=== PATIENT | female | born 1965 | race Caucasian/White ===

== ENCOUNTER → 2019-05-30 09:24 | Outpatient (CLI) | payer BC, SELFPAY ==
[2019-05-30 10:55] LABS: Erythrocyte Sedimentation Rate 7 MM/HR (0-20)
[2019-05-30 11:38] LABS: Thyroid Stimulating Hormone 5.13 uIU/mL (0.47-4.68)
[2019-06-01 20:17] LABS: ANA Screen, IFA Positive (Negative); ANA Titer 1:40 titer (<1:40)
== END ==
PROVIDERS: PCP Family Medicine; Visit Provider Hospitalist
DX: M25.552 Pain in left hip (principal)
CPT/HCPCS: 36415; 84443; 85651; 86038

== ENCOUNTER → 2019-08-10 08:04 | Outpatient (CLI) | payer BC, SELFPAY ==
--- NOTE | 2019-08-10 08:07 | DI.RAD.S_ITS ---
PROCEDURE: XR HAND LT MIN 3V INDICATIONS: hand pain no know injury TECHNIQUE: 3 views of the hand(s) acquired. COMPARISON: None. FINDINGS: Bones: No fractures or dislocations. Carpal bones are normally aligned. No suspicious bony lesions. Minimal diffuse interphalangeal degenerative changes. Chronic appearing ununited osteophyte at the DIP joint of the index finger. Soft tissues: No suspicious soft tissue calcifications. IMPRESSION: Mild degenerative changes as above. Dictated by: Manuel Young M.D. on 08/10/2019 at 11:02 Approved by: Manuel Young M.D. on 08/10/2019 at 11:04
--- NOTE | 2019-08-10 08:07 | DI.RAD.S_ITS ---
PROCEDURE: XR FOOT RT MIN 3V INDICATIONS: foot pain no know injury TECHNIQUE: 3 views of the foot were acquired. COMPARISON: None. FINDINGS: Bones: No fractures or dislocations. No suspicious bony lesions. Small plantar calcaneal spur. Mild first MTP joint degeneration. Hindfoot degenerative spurring in particular the dorsal aspect of the neck of the talus Soft tissues: No tibiotalar joint effusion. Achilles tendon appears normal. IMPRESSION: Degenerative changes as above. Small plantar calcaneal spur. If the patient's pain or other symptoms persist, consider further evaluation with MRI Dictated by: Manuel Young M.D. on 08/10/2019 at 11:55 Approved by: Manuel Young M.D. on 08/10/2019 at 11:59
--- NOTE | 2019-08-10 08:07 | DI.RAD.S_ITS ---
PROCEDURE: XR HAND RT MIN 3V INDICATIONS: hand pain no know injury TECHNIQUE: 3 views of the hand(s) acquired. COMPARISON: None. FINDINGS: Bones: No fractures or dislocations. Carpal bones are normally aligned. No suspicious bony lesions. Small marginal lucency seen at the PIP and DIP joints of the little finger as well as the DIP joint of the little finger, technically nonspecific but likely represent small erosions. First CMC joint spurring. Presumably chronic ununited osteophyte projects at the DIP joint of the index finger Soft tissues: No suspicious soft tissue calcifications. IMPRESSION: No fracture Pauci-articular marginal lucencies as detailed above, raising possibility of small erosions, technically indeterminate Dictated by: Manuel oYung M.D. on 08/10/2019 at 10:59 Approved by: Manuel Young M.D. on 08/10/2019 at 11:02
--- NOTE | 2019-08-10 08:07 | DI.RAD.S_ITS ---
PROCEDURE: XR FOOT LT MIN 3V INDICATIONS: foot pain no know injury TECHNIQUE: 3 views of the foot were acquired. COMPARISON: None. FINDINGS: Bones: No fractures or dislocations. No suspicious bony lesions. Plantar calcaneal spur. Mild first MTP joint degeneration. Soft tissues: No tibiotalar joint effusion. Achilles tendon appears normal. IMPRESSION: Plantar calcaneal spur. Mild first MTP joint degeneration. If the patient's pain or other symptoms persist, consider further evaluation with MRI Dictated by: Manuel Young M.D. on 08/10/2019 at 10:16 Approved by: Manuel Young M.D. on 08/10/2019 at 10:18
[2019-08-10 11:29] LABS: Thyroid Stimulating Hormone 2.33 uIU/mL (0.47-4.68)
== END ==
PROVIDERS: Hospitalist; PCP Family Medicine; Visit Provider Family Medicine
DX: M79.672 Pain in left foot (principal); M79.671 Pain in right foot; E03.9 Hypothyroidism, unspecified; M77.32 Calcaneal spur, left foot; M77.31 Calcaneal spur, right foot; M19.072 Primary osteoarthritis, left ankle and foot; M19.071 Primary osteoarthritis, right ankle and foot; M79.642 Pain in left hand; M79.641 Pain in right hand
CPT/HCPCS: 36415; 73130; 73630; 84443

== ENCOUNTER → 2020-06-11 17:13 | Outpatient (CLI) | payer BC, SELFPAY ==
--- NOTE | 2020-06-11 17:14 | DI.MG.S_ITS ---
BILATERAL DIGITAL SCREENING MAMMOGRAM 3D/2D WITH CAD: 06/11/2020 CLINICAL: Routine screening. Comparison is made to exams dated: 04/01/2017 mammogram, 05/24/2014 mammogram, 11/16/2012 mammogram, and 01/19/2012 mammogram - [facility]. The tissue of both breasts is extremely dense, which lowers the sensitivity of mammography. Current study was also evaluated with a Computer Aided Detection (CAD) system. There are benign calcifications in both breasts. No significant masses, calcifications, or other findings are seen in either breast. There has been no significant interval change. IMPRESSION: There is no mammographic evidence of malignancy. A 1 year screening mammogram is recommended. This exam was interpreted at Station ID: [id number]. NOTE: For mammograms, a report in lay terms will be sent to the patient. Approximately 15% of breast malignancies will not be visualized mammographically. In the management of a palpable breast mass, a negative mammogram must not discourage biopsy of a clinically suspicious lesion. Electronically Signed By: Yassine andujar/rasheeda:06/12/2020 08:08:24 letter sent: Normal Exam ACR BI-RADS Category 2: Benign Finding(s) 3342F
== END ==
PROVIDERS: PCP Family Medicine; Referring Provider Family Medicine; Visit Provider Family Medicine
DX: Z12.31 Encounter for screening mammogram for malignant neoplasm of breast (principal)
CPT/HCPCS: 77063; 77067

== ENCOUNTER → 2020-07-10 13:10 | Outpatient (CLI) | payer BC, SELFPAY ==
[2020-07-10 14:02] LABS: Add Manual Diff / Slide Review NO; Basophils Absolute Auto 100 /uL (0-100); Eosinophils Absolute Auto 100 /uL (0-450); Eosinophils Percent Auto 1.2 % (2-4); Hemoglobin 12.9 g/dL (12.0-16.0); Lymphocytes Absolute Auto 900 /uL (1100-4500); Lymphocytes Percent Auto 16.2 % (25-40); Mean Corpuscular Hemoglobin 33.9 PG (26-34); Mean Corpuscular Volume 99.5 fL (80-100); Monocytes Absolute Auto 500 /uL (0-900); Monocytes Percent Auto 8.9 % (3-14); Neutrophils Absolute Auto 4000 /uL (1500-7000); Neutrophils Percent Auto 72.7 % (50-75); Platelet Count 197 X10^3/uL (150-400); Red Blood Cell Count 3.82 X10^6/uL (4.0-5.2); Red Cell Distribution Width 14.4 % (11.6-14.8); White Blood Cell Count 5.6 X10^3/uL (4.5-11.0)
[2020-07-10 14:58] LABS: Thyroid Stimulating Hormone 1.62 uIU/mL (0.47-4.68)
[2020-07-10 15:02] LABS: Ferritin 22 ng/mL (11-264)
[2020-07-11 08:12] LABS: Thyroid Peroxidase Antibodies 91 IU/mL (0-34)
== END ==
PROVIDERS: PCP Family Medicine; Referring Provider Naturopath; Visit Provider Naturopath
DX: Z00.00 Encounter for general adult medical examination without abnormal findings (principal); L40.50 Arthropathic psoriasis, unspecified; E03.9 Hypothyroidism, unspecified; L60.8 Other nail disorders; H11.9 Unspecified disorder of conjunctiva
CPT/HCPCS: 36415; 82728; 84443; 85025; 86376

== ENCOUNTER → 2021-04-23 12:05 | Outpatient (CLI) | payer BC, SELFPAY ==
--- NOTE | 2021-04-23 12:09 | DIET.PN ---
Dietary Progress Note Assessment: 55y F attending nutrition visit for help with diet to manage rhumatoid arthritis. Pt taking two meds for RA (tried methotrexate, then switched to Destiny) is avoiding dairy, takes levothyroxine RA started about a year ago, got MADISON test and lesions on bones in hands giving her Dx, now px in hips, feet, hands Usual Day: 24oz coffee c 1 tbs coconut oil and 2 tsp butter B: oatmeal c maria fernanda seeds, dates or corn tortilla c eggs and greens or smoothie blueberry, strawberry, egg, almond butter, maria fernanda seeds L: leftovers rice and beans, salad, sandwich c turkey lettuce tomato goat cheese Sn 3pm: sometimes cookie, walnuts, or fruit Dinner: taco salad c chips, chicken, beans, salsa, guac, spaghetti or protein (elk, moose, chicken, fish c rice or potatoes and salad) 32oz water daily wine 1-2x/w socially RA does have some discomfort with workouts but still does it: weights 3x/w, run 4-5 mi twice per week, walk the other days taking 500mg Vit C, hair skin and nails, fish oil, D3, magnesium body oil Labs:MADISON positive Nutrition Diagnosis: nutrition related knowledge deficit r/t recent dx of rhumatoid arthritis aeb pt dx c RA one year ago, positive MADISON, pt researching variety of diets to manage RA and unsure which is best for her. Interventions: 1. Introduced pt to RA diet pyramid. Including daily PA, mineral water (1.5-2L), green leafy veg, cruciferous veg, red fruit and agrumes, gluten free grains/rice/corn, olive oil/avocado oil, maria fernanda and flax seeds, spices and herbs, okay for 1 glass wine, white meat/omega 3fish/legumes/wild game, and cheese/eggs/red meat only once or twice per week. 2. Discussed pts research on AIP diet. Pt feels this may be too restrictive for her and wonders if it is necessary. While this RD can help with an AIP type protocol, expressed to pt preference for starting with RA diet and we can revisit if her sx are not adequately controlled between this intervention and her medications. Diet Order: Anti-Inflammatory Diet EER: daily intake cruciferous veg, red fruit, [place] 3, Vit D, gluten free, and follow RA food guide pyramid. Monitoring/Evaluations: f/u in 6w to assess progress and problem solve barriers.
== END ==
PROVIDERS: PCP Family Medicine; Referring Provider Family Medicine; Visit Provider Family Medicine
DX: M06.9 Rheumatoid arthritis, unspecified (principal); Z71.3 Dietary counseling and surveillance
CPT/HCPCS: 97802

== ENCOUNTER → 2021-09-10 09:38 | Outpatient (CLI) | payer BC, SELFPAY ==
[2021-09-10 10:56] LABS: COVID19 -Nasal RAPID Negative (Negative)
== END ==
PROVIDERS: PCP Family Medicine; Referring Provider Nurse Practitioner; Visit Provider Nurse Practitioner
DX: Z20.822 Contact with and (suspected) exposure to COVID-19 (principal); J02.9 Acute pharyngitis, unspecified; R09.89 Other specified symptoms and signs involving the circulatory and respiratory systems; R51.9 Headache, unspecified
CPT/HCPCS: 87635

== ENCOUNTER → 2022-05-12 15:32 | Outpatient (CLI) | payer BC, SELFPAY ==
[2022-05-12 16:36] LABS: Add Manual Diff / Slide Review NO; Basophils Absolute Auto 100 /uL (0-100); Basophils Percent Auto 1.1 % (0-2); Eosinophils Absolute Auto 100 /uL (0-450); Eosinophils Percent Auto 1.7 % (2-4); Hematocrit 39.5 % (36-46); Hemoglobin 13.7 g/dL (12.0-16.0); Lymphocytes Absolute Auto 1400 /uL (1100-4500); Lymphocytes Percent Auto 24.2 % (25-40); Mean Corpuscular HGB Conc 34.6 % (30-36); Mean Corpuscular Hemoglobin 32.6 PG (26-34); Monocytes Absolute Auto 500 /uL (0-900); Monocytes Percent Auto 8.8 % (3-14); Neutrophils Absolute Auto 3700 /uL (1500-7000); Neutrophils Percent Auto 64.2 % (50-75); Platelet Count 169 X10^3/uL (150-400); Red Cell Distribution Width 13.3 % (11.6-14.8); White Blood Cell Count 5.8 X10^3/uL (4.5-11.0)
[2022-05-12 17:56] LABS: Alanine Aminotransferase 18 IU/L (<35); Albumin 4.6 g/dL (3.5-5.0); Albumin Globulin Ratio 1.5 (1.0-2.8); Alkaline Phosphatase 81 U/L (38-126); Aspartate Aminotransferase 35 IU/L (14-36); BUN Creatinine Ratio 13.8 (6-22); Bilirubin Total 0.5 mg/dL (0.2-1.3); Blood Urea Nitrogen 12 mg/dL (7-17); Calcium 9.1 mg/dL (8.4-10.2); Carbon Dioxide 30 mmol/L (22-32); Chloride 103 mmol/L (98-107); Estimated Glomerular Filt Rate > 60 mL/min (>60); Glucose 96 mg/dL (70-100); HEMOLYSIS < 15 (0-50); Potassium 3.8 mmol/L (3.4-5.1); Sodium 138 mmol/L (137-145); Total Protein 7.6 g/dL (6.3-8.2)
== END ==
PROVIDERS: PCP Family Medicine; Referring Provider Internal Medicine Rheumatology; Visit Provider Internal Medicine Rheumatology
DX: M05.29 Rheumatoid vasculitis with rheumatoid arthritis of multiple sites (principal); Z79.899 Other long term (current) drug therapy; E03.8 Other specified hypothyroidism; E06.3 Autoimmune thyroiditis; M06.9 Rheumatoid arthritis, unspecified
CPT/HCPCS: 36415; 80053; 85025

== ENCOUNTER → 2022-06-15 07:32 | Outpatient (CLI) | payer BC, SELFPAY ==
[2022-06-15 09:44] LABS: Cholesterol 203 mg/dL (140-199); HDL Cholesterol 106 mg/dL (40-60); LDL Cholesterol Calculated 85 mg/dL (<100); Triglycerides 58 mg/dL (35-150)
[2022-06-15 10:12] LABS: TSH w/ Reflex to FT4 3.05 uIU/mL (0.47-4.68)
== END ==
PROVIDERS: PCP Family Medicine; Referring Provider Family Medicine; Visit Provider Family Medicine
DX: E03.8 Other specified hypothyroidism (principal); E06.3 Autoimmune thyroiditis; M06.9 Rheumatoid arthritis, unspecified
CPT/HCPCS: 36415; 80061; 84443

== ENCOUNTER → 2022-12-30 07:04 | Outpatient (CLI) | payer BC, SELFPAY ==
[2022-12-30 07:40] LABS: Add Manual Diff / Slide Review NO; Basophils Absolute Auto 0 /uL (0-100); Basophils Percent Auto 1.1 % (0-2); Eosinophils Absolute Auto 100 /uL (0-450); Eosinophils Percent Auto 1.2 % (2-4); Hematocrit 39.2 % (36-46); Hemoglobin 13.4 g/dL (12.0-16.0); Lymphocytes Absolute Auto 1200 /uL (1100-4500); Mean Corpuscular HGB Conc 34.2 % (30-36); Mean Corpuscular Hemoglobin 32.3 PG (26-34); Mean Corpuscular Volume 94.5 fL (80-100); Monocytes Absolute Auto 300 /uL (0-900); Monocytes Percent Auto 6.2 % (3-14); Neutrophils Absolute Auto 2800 /uL (1500-7000); Neutrophils Percent Auto 63.5 % (50-75); Platelet Count 180 X10^3/uL (150-400); Red Blood Cell Count 4.15 X10^6/uL (4.0-5.2); Red Cell Distribution Width 12.6 % (11.6-14.8); White Blood Cell Count 4.4 X10^3/uL (4.5-11.0)
[2022-12-30 07:56] LABS: Alanine Aminotransferase 29 IU/L (<35); Albumin 4.5 g/dL (3.5-5.0); Albumin Globulin Ratio 1.5 (1.0-2.8); Alkaline Phosphatase 78 U/L (38-126); Aspartate Aminotransferase 39 IU/L (14-36); BUN Creatinine Ratio 15.8 (6-22); Bilirubin Total 0.8 mg/dL (0.2-1.3); Blood Urea Nitrogen 15 mg/dL (7-17); C-Reactive Protein Quant < 0.5 mg/dL (<1.0); Calcium 9.2 mg/dL (8.4-10.2); Carbon Dioxide 32 mmol/L (22-32); Chloride 102 mmol/L (98-107); Estimated Glomerular Filt Rate > 60 mL/min (>60); Globulin 3.1 g/dL (1.7-4.1); Glucose 79 mg/dL (70-100); HEMOLYSIS < 15 (0-50); Sodium 140 mmol/L (137-145); Total Protein 7.6 g/dL (6.3-8.2)
[2022-12-30 07:58] LABS: Erythrocyte Sedimentation Rate 8 MM/HR (0-20)
[2022-12-30 16:31] LABS: Hep C Virus Ab w/Reflex Quant NEGATIVE s/c (NEGATIVE)
[2022-12-31 05:14] LABS: Hepatitis B Core AB w/Reflex Negative (Negative)
[2023-01-03 16:20] LABS: QuantiFERON Mitogen Value >10.00 IU/mL (.); QuantiFERON Nil Value 0.06 IU/mL (.); QuantiFERON TB Gold Plus Negative (Negative); QuantiFERON TB1 Ag Value 0.07 IU/mL (.); QuantiFERON TB2 Ag Value 0.08 IU/mL (.)
== END ==
PROVIDERS: PCP Family Medicine; Referring Provider Internal Medicine Rheumatology; Visit Provider Internal Medicine Rheumatology
DX: M05.79 Rheumatoid arthritis with rheumatoid factor of multiple sites without organ or systems involvement (principal); Z79.899 Other long term (current) drug therapy
CPT/HCPCS: 36415; 80053; 85025; 85651; 86140; 86480; 86704; 86803

== ENCOUNTER → 2023-04-21 10:23 | Outpatient (CLI) | payer BC, SELFPAY ==
[2023-04-21 11:34] LABS: Add Manual Diff / Slide Review NO; Basophils Absolute Auto 100 /uL (0-100); Basophils Percent Auto 1.1 % (0-2); Eosinophils Absolute Auto 0 /uL (0-450); Eosinophils Percent Auto 0.5 % (2-4); Hematocrit 40.1 % (36-46); Hemoglobin 13.6 g/dL (12.0-16.0); Lymphocytes Absolute Auto 1400 /uL (1100-4500); Mean Corpuscular HGB Conc 33.9 % (30-36); Mean Corpuscular Hemoglobin 32.6 PG (26-34); Monocytes Absolute Auto 400 /uL (0-900); Monocytes Percent Auto 7.1 % (3-14); Neutrophils Absolute Auto 3400 /uL (1500-7000); Neutrophils Percent Auto 65.3 % (50-75); Platelet Count 184 X10^3/uL (150-400); Red Blood Cell Count 4.17 X10^6/uL (4.0-5.2); Red Cell Distribution Width 13.1 % (11.6-14.8); White Blood Cell Count 5.3 X10^3/uL (4.5-11.0)
[2023-04-21 11:47] LABS: Alanine Aminotransferase 29 IU/L (<35); Albumin 4.5 g/dL (3.5-5.0); Albumin Globulin Ratio 1.6 (1.0-2.8); Alkaline Phosphatase 73 U/L (38-126); Aspartate Aminotransferase 35 IU/L (14-36); BUN Creatinine Ratio 14.1 (6-22); Blood Urea Nitrogen 13 mg/dL (7-17); Calcium 9.3 mg/dL (8.4-10.2); Carbon Dioxide 32 mmol/L (22-32); Chloride 100 mmol/L (98-107); Cholesterol 207 mg/dL (140-199); Estimated Glomerular Filt Rate > 60 mL/min (>60); Globulin 2.9 g/dL (1.7-4.1); Glucose 95 mg/dL (70-100); HDL Cholesterol 95 mg/dL (40-60); HEMOLYSIS < 15 (0-50); LDL Cholesterol Calculated 97 mg/dL (<100); Sodium 140 mmol/L (137-145); Total Protein 7.4 g/dL (6.3-8.2); Triglycerides 73 mg/dL (35-150)
[2023-04-21 12:00] LABS: TSH w/ Reflex to FT4 1.01 uIU/mL (0.47-4.68)
== END ==
PROVIDERS: PCP Family Medicine; Referring Provider Family Medicine; Visit Provider Family Medicine
DX: E03.9 Hypothyroidism, unspecified (principal); M06.9 Rheumatoid arthritis, unspecified
CPT/HCPCS: 36415; 80053; 80061; 84443; 85025

== ENCOUNTER → 2023-05-06 14:10 | Outpatient (CLI) | payer BC, SELFPAY ==
[2023-05-09 10:38] LABS: Fecal Immunochemical Test Negative (Negative)
== END ==
PROVIDERS: PCP Family Medicine; Referring Provider Family Medicine; Visit Provider Family Medicine
DX: Z12.11 Encounter for screening for malignant neoplasm of colon (principal)
CPT/HCPCS: 82274

== ENCOUNTER → 2024-01-05 16:11 | Outpatient (CLI) | payer BC, SELFPAY ==
[2024-01-05 19:31] LABS: Influenza A - CEPHEID Flu A NEGATIVE (NEGATIVE); Influenza B - CEPHEID Flu B NEGATIVE (NEGATIVE); Respiratory Syncytial Virus Negative (Negative)
[2024-01-05 19:40] LABS: COVID-19 CEPHEID 4-PLEX PCR POSITIVE (Negative)
== END ==
PROVIDERS: PCP Family Medicine; Visit Provider Physician Assistant
DX: R05.1 Acute cough (principal)
CPT/HCPCS: 0241U

== ENCOUNTER → 2024-09-25 07:24 | Outpatient (CLI) | payer BC, SELFPAY ==
--- NOTE | 2024-09-25 07:26 | DI.RAD.S_ITS ---
PROCEDURE: XR HIP W PEL IF DONE LT 2V INDICATIONS: left hip pain TECHNIQUE: AP pelvis with lateral view(s) of the left hip(s). COMPARISON: None. FINDINGS: No acute fracture or dislocation. Minimal bilateral hip osteoarthritis, greater on the left side. Mild right sacroiliac joint osteoarthritis. The left sacroiliac joint is preserved. Mild pubic symphysis osteoarthritis. Pelvic phleboliths. The visualized sacral arcs are preserved. IMPRESSION: Minimal bilateral hip osteoarthritis, greater on the left side. Dictated by: Clayton Joseph M.D. on 09/27/2024 at 10:34 Approved by: Clayton Joseph M.D. on 09/27/2024 at 10:35
[2024-09-25 08:11] LABS: Add Manual Diff / Slide Review NO; Basophils Absolute Auto 0 /uL (0-100); Basophils Percent Auto 1.2 % (0-2); Eosinophils Absolute Auto 0 /uL (0-450); Hemoglobin 12.6 g/dL (12.0-16.0); Lymphocytes Absolute Auto 1000 /uL (1100-4500); Lymphocytes Percent Auto 22.6 % (25-40); Mean Corpuscular Hemoglobin 32.8 PG (26-34); Mean Corpuscular Volume 96.4 fL (80-100); Monocytes Absolute Auto 300 /uL (0-900); Neutrophils Absolute Auto 2900 /uL (1500-7000); Neutrophils Percent Auto 67.2 % (50-75); Platelet Count 175 X10^3/uL (150-400); Red Blood Cell Count 3.84 X10^6/uL (4.0-5.2); Red Cell Distribution Width 12.9 % (11.6-14.8); White Blood Cell Count 4.3 X10^3/uL (4.5-11.0)
[2024-09-25 09:03] LABS: TSH w/ Reflex to FT4 4.64 uIU/mL (0.47-4.68)
[2024-09-25 09:07] LABS: Alanine Aminotransferase 20 IU/L (<35); Albumin 3.8 g/dL (3.5-5.0); Albumin Globulin Ratio 1.6 (1.0-2.8); Alkaline Phosphatase 72 U/L (38-126); Aspartate Aminotransferase 35 IU/L (14-36); Bilirubin Total 0.7 mg/dL (0.2-1.3); Blood Urea Nitrogen 15 mg/dL (7-17); Calcium 9.5 mg/dL (8.4-10.2); Carbon Dioxide 31 mmol/L (22-32); Chloride 103 mmol/L (98-107); Cholesterol 186 mg/dL (140-199); Estimated Glomerular Filt Rate > 60 mL/min (>60); Globulin 2.4 g/dL (1.7-4.1); Glucose 95 mg/dL (70-100); HDL Cholesterol 95 mg/dL (40-60); HEMOLYSIS < 15 (0-50); LDL Cholesterol Calculated 78 mg/dL (<100); Potassium 4.2 mmol/L (3.4-5.1); Sodium 136 mmol/L (137-145); Total Protein 6.2 g/dL (6.3-8.2); Triglycerides 66 mg/dL (35-150)
== END ==
PROVIDERS: PCP Family Medicine; Referring Provider Family Medicine; Visit Provider Family Medicine
DX: M25.552 Pain in left hip (principal); M06.9 Rheumatoid arthritis, unspecified; E03.8 Other specified hypothyroidism; Z13.220 Encounter for screening for lipoid disorders; E06.3 Autoimmune thyroiditis; M16.0 Bilateral primary osteoarthritis of hip
CPT/HCPCS: 36415; 73502; 80053; 80061; 84443; 85025

== ENCOUNTER → 2024-11-22 10:46 | Outpatient (CLI) | payer BC, SELFPAY ==
[2024-11-22 11:59] LABS: Add Manual Diff / Slide Review NO; Basophils Absolute Auto 100 /uL (0-100); Eosinophils Absolute Auto 0 /uL (0-450); Eosinophils Percent Auto 0.7 % (2-4); Hematocrit 42.4 % (36-46); Hemoglobin 14.3 g/dL (12.0-16.0); Lymphocytes Absolute Auto 1100 /uL (1100-4500); Lymphocytes Percent Auto 20.4 % (25-40); Mean Corpuscular HGB Conc 33.8 % (30-36); Mean Corpuscular Hemoglobin 32.6 PG (26-34); Mean Corpuscular Volume 96.6 fL (80-100); Monocytes Absolute Auto 400 /uL (0-900); Monocytes Percent Auto 7.5 % (3-14); Neutrophils Absolute Auto 3800 /uL (1500-7000); Neutrophils Percent Auto 70.4 % (50-75); Platelet Count 221 X10^3/uL (150-400); Red Blood Cell Count 4.39 X10^6/uL (4.0-5.2); Red Cell Distribution Width 12.7 % (11.6-14.8); White Blood Cell Count 5.4 X10^3/uL (4.5-11.0)
[2024-11-22 13:20] LABS: TSH w/ Reflex to FT4 1.47 uIU/mL (0.47-4.68)
== END ==
PROVIDERS: Family Provider Family Medicine; PCP Family Medicine; Referring Provider Family Medicine; Visit Provider Family Medicine
DX: E03.8 Other specified hypothyroidism (principal); E06.3 Autoimmune thyroiditis; M06.9 Rheumatoid arthritis, unspecified
CPT/HCPCS: 36415; 84443; 85025

== ENCOUNTER 2025-04-17 10:45 | Outpatient (RCR) | payer BC, SELFPAY ==
--- NOTE | 2024-10-31 15:55 | PT.OIE ---
Current Diagnoses Pain in left hip (10/31/24) Stiffness of left hip, not elsewhere classified (10/31/24) Stiffness of other specified joint, not elsewhere classified (10/31/24) Other lack of coordination (10/31/24) Weakness (10/31/24) Past Medical History (Last Reviewed 03/23/21 @ 14:48 by Reji Hall MD) Rheumatoid arthritis Past Surgical History (Last Reviewed 03/23/21 @ 14:48 by Reji Hall MD) Status post left foot surgery Visit Care Team Role Provider Type Reji Hall MD Attending Provider Physician Family Provider Primary Care Provider Referring Provider Specialty: Family Practice Address: [address] [place] [address] Email: [email or web address] Physical Therapy Initial Evaluation PT-OP-A Visit Information Start: 10/30/24 16:07 Freq: Status: Active Protocol: Document 10/31/24 11:35 NM (Rec: 10/31/24 12:27 NM [id number]) Out-Patient Physical Therapy Visit Information Visit Information Visit Type Initial Evaluation Visit Start Time 11:36 Visit Stop Time 12:15 Visit Number 1 Evaluation Information Evaluation Date 10/31/24 Precautions Precautions RA PT-OP-B Current Condition Start: 10/30/24 16:07 Freq: Status: Active Protocol: Document 10/31/24 11:35 NM (Rec: 10/31/24 12:27 NM [id number]) Current Condition History of Current Condition Onset Date chronic Current Complaints pain, weakness History of Current Condition Pt reports on-off pain for years. She reports pain in L side, inside of the bone. She reports when running, if it hard to lift leg to run, has pain in glute. She has had pain at night, wakes her up. feels deep. She has a hx of sciatic pain on L side. She sees a chiro, 1x/month helps with pain in back (mid-low back). 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 Used to have pain with sleeping on side, but now any position. Has RA, has flare ups, dx 7 years ago (on medication to manage); saw rheum 1 month ago, has follow up in a few weeks. When she starts running, worse if already irritated; feels weak. No hx of injuries to hip. hx of several ankle injuries B, L >R- limited motion L Prior Treatments and Tests August 2024 L hip xray- Impression: minimal bilateral hip osteoarthritis, greater on the left side. Current Functional Impairments (Reported) Functional Limitations- Recreation/ wt lifting 3x/wk Hobbies running 3x/wk (5-6 mi, 4 mi) > 2x/wk PT-OP-C Subjective Start: 10/31/24 16:25 Freq: Status: Active Protocol: Document 10/31/24 11:35 NM (Rec: 10/31/24 16:26 NM [id number]) OP-PT Subjective Patient Comments Patient Comments Pt consents to participate in PT evaluation Patient Questionnaires Lower Extremity Functional Scale LEFS Score 75/80 Oswestry Low Back Index Oswestry Score 12/100 OP-PT Pain Assessment Location L hip Pain Location Details glute (deep)>lateral hip, ant hip in groin (deep) Intensity 3 Scale Used Numeric (0 - 10) Description Aching,Dull Description- Other worst 7/10 Pain Aggravating Factors Position,Changing Position, Activity,Exercise,Sitting, Walking,Bending,Lifting Other Pain Aggravating Factors sleeping, hitting volleyball, running Pain Alleviating Factors Position Other Pain Alleviating Factors offloading hip PT-OP-D Balance Start: 10/30/24 16:07 Freq: Status: Active Protocol: Document 10/31/24 11:35 NM (Rec: 10/31/24 12:27 NM [id number]) Balance Tests Single Limb Standing Single Limb- Right 5 Single Limb- Left 5 - demos trendelenburg PT-OP-E Functional Tests Start: 10/30/24 16:07 Freq: Status: Active Protocol: Document 10/31/24 11:35 NM (Rec: 10/31/24 12:27 NM [id number]) Functional Tests Squat Test Score 10 Comments demos hip shift and rot; B knee crepitus Single Leg Squat Test Score L weakness and valgus Comment R WFL PT-OP-F Manual Assessment Start: 10/30/24 16:07 Freq: Status: Active Protocol: Document 10/31/24 11:35 NM (Rec: 10/31/24 12:27 NM [id number]) Manual Assessments Soft Tissue Assessment Soft Tissue Mobility Assessment Tightness of hip flexors, glutes Elongated hamstrings Joint Mobility Assessment Joint Mobility Assessment Decreased mobility with rotation R hip, L hip has more mobility Hypomobility of lumbar spine, thoracic spine and L SIJ, tenderness at L SIJ PT-OP-G Mobility & Gait Start: 10/30/24 16:07 Freq: Status: Active Protocol: Document 10/31/24 11:35 NM (Rec: 10/31/24 12:27 NM [id number]) OP Gait Assessment Gait Gait Assistance Required: Independent Distance (Feet) 150 Assistive Devices Assistive Device None Gait Deviations General Gait Pattern Within Normal Limits PT-OP-J Posture/Palpation/Skin Start: 10/30/24 16:07 Freq: Status: Active Protocol: Document 10/31/24 11:35 NM (Rec: 10/31/24 12:27 NM [id number]) Posture Evaluation Position Standing Head/C-Spine Posture Forward Head Shoulder Posture (L) Rounded,(R) Rounded Scapula Posture (L) Neutral,(R) Neutral Pelvis Posture Anteriorly Tilted,(R) Rotated Anterior Knee Posture (L) Genu Valgus,(R) Genu Valgus Ankle/Foot Posture (L) Pronated,(R) Pronated Comments Posture Comments Demos hypermobility in B elbows and knees Palpation Assessment Location L hip Palpation Details No tenderness at groin Tightness at hip flexors Tenderness at glute, piriformis. Trigger points noted at glutes/piriformis harrison behind greater trochanter PT-OP-K Range of Motion Start: 10/30/24 16:07 Freq: Status: Active Protocol: Document 10/31/24 11:35 NM (Rec: 10/31/24 12:27 NM [id number]) Lumbar Spine Range of Motion Lumbar Spine Active Percentage Flexion 100 Extension 100 Rotation Left 50 Rotation Right 50 Lateral Flexion Left 100 Lateral Flexion Right 100 Comments R LF pulls on L lateral; stiffness w/ rotation; R drop w/ L stance Hip Goniometric Range of Motion Hip Right Flexion w/Knee Flexed 125 Extension 10 Abduction 25 Internal Rotation 35 External Rotation 35 Left Flexion w/Knee Flexed 130 Extension 10 Abduction 20 Internal Rotation 45 External Rotation 28 Comments IR tightness, same pain PT-OP-L Special Tests Start: 10/30/24 16:07 Freq: Status: Active Protocol: Document 10/31/24 11:35 NM (Rec: 10/31/24 12:27 NM [id number]) Special Tests Lumbar Spine Special Tests Gonzales/quadrant Test Results + Comments L local, Radic to bottom Hip Special Tests Scour Test Test Results - Stinchfield Resisted Hip Flexion Test Results - Labral tests Test Results - FADIR Test Results - Comments reproduced with cross body adduction and SLR passively SAMANHTA Test Results + Comments in glute, less on L side PT-OP-M Strength Start: 10/30/24 16:07 Freq: Status: Active Protocol: Document 10/31/24 11:35 NM (Rec: 10/31/24 12:27 NM [id number]) Trunk Strength Trunk Manual Muscle Testing Flexion 4 Good Extension 4 Good Rotation Left 4 Good Rotation Right 4 Good Lateral Flexion Left 4 Good Lateral Flexion Right 4 Good Hip Strength Hip Manual Muscle Testing Right Flexion (L2) 4+ Good+ Extension (S1) 4 Good Abduction 4+ Good+ Adduction 4+ Good+ External Rotation 4+ Good+ Internal Rotation 4+ Good+ Left Flexion (L2) 4 Good Extension (S1) 4 Good Abduction 4- Good- Adduction 4 Good External Rotation 4 Good Internal Rotation 4- Good- Comments pain with abduction resisted Knee Strength Knee Manual Muscle Testing Right Flexion (S2) 4+ Good+ Extension (L3) 4+ Good+ Left Flexion (S2) 4 Good Extension (L3) 4 Good Comments pain with HS, reproduced in glute Ankle/Foot Strength Ankle and Foot Manual Muscle Testing Right Dorsiflexion (L4) 4 Good Plantarflexion (S1) 4 Good Inversion 4 Good Eversion (S1) 4 Good Left Dorsiflexion (L4) 4 Good Plantarflexion (S1) 4 Good Inversion 4 Good Eversion (S1) 4 Good PT-OP-T Assessment and Plan Start: 10/30/24 16:07 Freq: Status: Active Protocol: Document 10/31/24 11:35 NM (Rec: 10/31/24 12:27 NM [id number]) Physical Therapy Assessment Rehab Potential Rehabilitation Potential Good Evaluation Complexity Number of Personal Factors/Comorbidities 3 or More Number of Body Systems Impaired 4 or More Clinical Presentation at Evaluation Stable Impairments Impairments Activity Tolerance,Balance, Functional Activities, Functional Mobility,Gait, Integument,Pain,Posture,ROM, Sensation,Soft Tissue Mobility ,Strength,Transfers Other Concerns Age Related Concerns PMH: RA, back pain, thyroid disorder, varicose veins. 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 presenting with chronic L hip pain that is worsening. Pt has impairments with sleep, ROM, strength, soft tissue mobility , ADLs/IADLs, work-related tasks, and pain management. Pt is active and participates in strength training and running several times/wk. Pt does have mild limitations in L hip mobility. However, she demonstrates more restrictions in lumbopelvic and SIJ mobility. Pt also has mild strength deficits between B hips/ankles, L>R. Glute tendon irritation also likely from trendelenburg with SLS and pain with resisted L abduction . Symptoms are most consistent with piriformis syndrome with glute pathology and SIJ dysfunction, along with above mobility impairments. PT educated pt on plan of care and exam findings. Rehab progress may be limited by pt work schedule. Pt would benefit from skilled PT for progressive strengthening and flexibility in order to improve symptom management and improve functional mobility. Physical Therapy Plan Frequency and Duration Frequency of Treatment 1-2x/wk Duration of treatment (weeks) 12 Plan of Care Start Date 10/31/24 Plan of Care End Date 01/25/25 Therapeutic Interventions Therapeutic Interventions Balance Training,Gait Training ,Home Exercise Program,Joint Mobilizations,Manual Therapy, Neuromuscular Re-education, Orthotic/Prosthetic Management ,Patient/Caregiver Education, Self-Care/Home Management, Sensory Integration,Soft Tissue Mobilization,Taping, Therapeutic Activities, Therapeutic Exercises Modalities Cold Pack/Ice Massage,Electric Stimulation,Hot Packs, Ultrasound Next Visit Focus/Plan Next Note Type Treatment Note Next Visit Plan hip mobilizations STM to glute, glute/hip strength harrison rotation quadruped mobility, hip ER/IR mobility
--- NOTE | 2024-11-02 10:37 | PT.OTN ---
Current Diagnoses Pain in left hip (11/02/24) Stiffness of left hip, not elsewhere classified (11/02/24) Stiffness of other specified joint, not elsewhere classified (11/02/24) Other lack of coordination (11/02/24) Weakness (11/02/24) Physical Therapy Treatment Note PT-OP-A Visit Information Start: 10/30/24 16:07 Freq: Status: Active Protocol: Document 11/02/24 09:47 NM (Rec: 11/02/24 10:36 NM [id number]) Out-Patient Physical Therapy Visit Information Visit Information Visit Type Treatment Note Visit Start Time 09:49 Visit Stop Time 10:30 Visit Number 2 Evaluation Information Evaluation Date 10/31/24 Precautions Precautions RA PT-OP-B Current Condition Start: 10/30/24 16:07 Freq: Status: Active Protocol: Document 10/31/24 11:35 NM (Rec: 10/31/24 12:27 NM [id number]) Current Condition History of Current Condition Onset Date chronic Current Complaints pain, weakness History of Current Condition Pt reports on-off pain for years. She reports pain in L side, inside of the bone. She reports when running, if it hard to lift leg to run, has pain in glute. She has had pain at night, wakes her up. feels deep. She has a hx of sciatic pain on L side. She sees a chiro, 1x/month helps with pain in back (mid-low back). 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 Used to have pain with sleeping on side, but now any position. Has RA, has flare ups, dx 7 years ago (on medication to manage); saw rheum 1 month ago, has follow up in a few weeks. When she starts running, worse if already irritated; feels weak. No hx of injuries to hip. hx of several ankle injuries B, L >R- limited motion L Prior Treatments and Tests August 2024 L hip xray- Impression: minimal bilateral hip osteoarthritis, greater on the left side. Current Functional Impairments (Reported) Functional Limitations- Recreation/ wt lifting 3x/wk Hobbies running 3x/wk (5-6 mi, 4 mi) > 2x/wk PT-OP-C Subjective Start: 10/31/24 16:25 Freq: Status: Active Protocol: Document 11/02/24 09:47 NM (Rec: 11/02/24 10:36 NM [id number]) OP-PT Subjective Patient Comments Patient Comments Pt reports no changes after evaluation. Pt reports L hip 2 /10 pain in glute area PT-OP-D Balance Start: 10/30/24 16:07 Freq: Status: Active Protocol: Document 10/31/24 11:35 NM (Rec: 10/31/24 12:27 NM [id number]) Balance Tests Single Limb Standing Single Limb- Right 5 Single Limb- Left 5 - demos trendelenburg PT-OP-E Functional Tests Start: 10/30/24 16:07 Freq: Status: Active Protocol: Document 10/31/24 11:35 NM (Rec: 10/31/24 12:27 NM [id number]) Functional Tests Squat Test Score 10 Comments demos hip shift and rot; B knee crepitus Single Leg Squat Test Score L weakness and valgus Comment R WFL PT-OP-F Manual Assessment Start: 10/30/24 16:07 Freq: Status: Active Protocol: Document 10/31/24 11:35 NM (Rec: 10/31/24 12:27 NM [id number]) Manual Assessments Soft Tissue Assessment Soft Tissue Mobility Assessment Tightness of hip flexors, glutes Elongated hamstrings Joint Mobility Assessment Joint Mobility Assessment Decreased mobility with rotation R hip, L hip has more mobility Hypomobility of lumbar spine, thoracic spine and L SIJ, tenderness at L SIJ PT-OP-G Mobility & Gait Start: 10/30/24 16:07 Freq: Status: Active Protocol: Document 10/31/24 11:35 NM (Rec: 10/31/24 12:27 NM [id number]) OP Gait Assessment Gait Gait Assistance Required: Independent Distance (Feet) 150 Assistive Devices Assistive Device None Gait Deviations General Gait Pattern Within Normal Limits PT-OP-J Posture/Palpation/Skin Start: 10/30/24 16:07 Freq: Status: Active Protocol: Document 10/31/24 11:35 NM (Rec: 10/31/24 12:27 NM [id number]) Posture Evaluation Position Standing Head/C-Spine Posture Forward Head Shoulder Posture (L) Rounded,(R) Rounded Scapula Posture (L) Neutral,(R) Neutral Pelvis Posture Anteriorly Tilted,(R) Rotated Anterior Knee Posture (L) Genu Valgus,(R) Genu Valgus Ankle/Foot Posture (L) Pronated,(R) Pronated Comments Posture Comments Demos hypermobility in B elbows and knees Palpation Assessment Location L hip Palpation Details No tenderness at groin Tightness at hip flexors Tenderness at glute, piriformis. Trigger points noted at glutes/piriformis harrison behind greater trochanter PT-OP-K Range of Motion Start: 10/30/24 16:07 Freq: Status: Active Protocol: Document 10/31/24 11:35 NM (Rec: 10/31/24 12:27 NM [id number]) Lumbar Spine Range of Motion Lumbar Spine Active Percentage Flexion 100 Extension 100 Rotation Left 50 Rotation Right 50 Lateral Flexion Left 100 Lateral Flexion Right 100 Comments R LF pulls on L lateral; stiffness w/ rotation; R drop w/ L stance Hip Goniometric Range of Motion Hip Right Flexion w/Knee Flexed 125 Extension 10 Abduction 25 Internal Rotation 35 External Rotation 35 Left Flexion w/Knee Flexed 130 Extension 10 Abduction 20 Internal Rotation 45 External Rotation 28 Comments IR tightness, same pain PT-OP-L Special Tests Start: 10/30/24 16:07 Freq: Status: Active Protocol: Document 10/31/24 11:35 NM (Rec: 10/31/24 12:27 NM [id number]) Special Tests Lumbar Spine Special Tests Gonzales/quadrant Test Results + Comments L local, Radic to bottom Hip Special Tests Scour Test Test Results - Stinchfield Resisted Hip Flexion Test Results - Labral tests Test Results - FADIR Test Results - Comments reproduced with cross body adduction and SLR passively SAMANTHA Test Results + Comments in glute, less on L side PT-OP-M Strength Start: 10/30/24 16:07 Freq: Status: Active Protocol: Document 10/31/24 11:35 NM (Rec: 10/31/24 12:27 NM [id number]) Trunk Strength Trunk Manual Muscle Testing Flexion 4 Good Extension 4 Good Rotation Left 4 Good Rotation Right 4 Good Lateral Flexion Left 4 Good Lateral Flexion Right 4 Good Hip Strength Hip Manual Muscle Testing Right Flexion (L2) 4+ Good+ Extension (S1) 4 Good Abduction 4+ Good+ Adduction 4+ Good+ External Rotation 4+ Good+ Internal Rotation 4+ Good+ Left Flexion (L2) 4 Good Extension (S1) 4 Good Abduction 4- Good- Adduction 4 Good External Rotation 4 Good Internal Rotation 4- Good- Comments pain with abduction resisted Knee Strength Knee Manual Muscle Testing Right Flexion (S2) 4+ Good+ Extension (L3) 4+ Good+ Left Flexion (S2) 4 Good Extension (L3) 4 Good Comments pain with HS, reproduced in glute Ankle/Foot Strength Ankle and Foot Manual Muscle Testing Right Dorsiflexion (L4) 4 Good Plantarflexion (S1) 4 Good Inversion 4 Good Eversion (S1) 4 Good Left Dorsiflexion (L4) 4 Good Plantarflexion (S1) 4 Good Inversion 4 Good Eversion (S1) 4 Good PT-OP-Q Treatments Start: 10/30/24 16:07 Freq: Status: Active Protocol: Document 11/02/24 09:47 NM (Rec: 11/02/24 10:36 NM [id number]) Therapeutic Exercises Supine Exercises single leg bridge Supine Exercise Name with ppt- HEP Side bilateral Reps/Minutes 15 ea Comments cued level pelvis figure 4 Supine Exercise Name from hooklying- HEP Side bilateral Reps/Minutes 60 ea with prn rotation Comments post manual; feels in appropriate spot LTR Supine Exercise Name HEP Side bilateral Reps/Minutes 10 w/ 5 hold ea direction Comments to end range, no increased pain Sidelying Exercises reverse clams Sidelying Exercise Name HEP Side bilateral Resistance AROM > level 2 band Equipment Used with 1/2 foam roller in between legs Reps/Minutes 15 w/o band, 15 w/ band clam Sidelying Exercise Name HEP Side bilateral Resistance AROM > level 2 band Reps/Minutes 15 w/o band, 15 w/ band Comments pain free Other Exercises self soft tissue mobilization Other Exercise Name MWM with piriformis Side left Equipment Used racquetball Reps/Minutes 10 hip flex/ER Manual Therapy Treatment Consent Patient gave verbal consent for manual Yes treatment Soft Tissue Mobilization L hip Body Location hip flexors, TFL, glute max/ med, piriformis, HS Mobilization Type Rolling,Sustained Pressure, Other Intensity/Depth Moderate Body Position sidelying,supine Comments Tightness and tendernss at piriformis and glute med, especially in muscle belly and closer to greater trochanter. MWM with clams Joint Mobilizations L hip Direction PA Grade III Body Position Sidelying Reps/Duration 2x10 Comments with passive hip ext Monitored for pain PT-OP-T Assessment and Plan Start: 10/30/24 16:07 Freq: Status: Active Protocol: Document 11/02/24 09:47 NM (Rec: 11/02/24 10:36 NM [id number]) Physical Therapy Assessment Goals Three Impairment sleeping impaired d/t pain Short Term Goal (STG) Pt will report that she is waking <50% of the time due to hip pain STG Duration 8 weeks Assisted Goal (LTG) Pt will report that she is not waking due to hip pain LTG Duration 12 weeks Two Impairment pain with running Short Term Goal (STG) Pt will improve global hip and knee strength to at least 4+/ 5 in order increase strength and stability during running STG Duration 8 weeks Assisted Goal (LTG) Pt will report that she has hip pain <3/10 with running LTG Duration 12 weeks One Impairment not performing HEP Assisted Goal (LTG) Pt will be IND with HEP at least 3x/wk in order to maximize progression with PT and to transition to maintenance program following discharge LTG Duration 12 weeks Assessment Summary Assessment Pt tolerated session well. Reports less pain in hip at end of session following mnual therapy. Good feedback to mobilization with movement. Educated on use at home with racquetball or lacrosse ball. Tenderness over glute med-max tendons and piriformis. Limited trunk ROM with rotation, good feedback for LTR and hip ER stretches with rotation. Initiated glute and hip ER strengthening to improve lumbopelvic stability. Minimal cues needed for form. Pt would continue to benefit from skilled PT for progressive strengthening and flexibility in order to improve symptom management and ability to participate in recreational activities. Physical Therapy Plan Frequency and Duration Frequency of Treatment 1-2x/wk Duration of treatment (weeks) 12 Plan of Care Start Date 10/31/24 Plan of Care End Date 01/25/25 Therapeutic Interventions Therapeutic Interventions Balance Training,Gait Training ,Home Exercise Program,Joint Mobilizations,Manual Therapy, Neuromuscular Re-education, Orthotic/Prosthetic Management ,Patient/Caregiver Education, Self-Care/Home Management, Sensory Integration,Soft Tissue Mobilization,Taping, Therapeutic Activities, Therapeutic Exercises Modalities Cold Pack/Ice Massage,Electric Stimulation,Hot Packs, Ultrasound Next Visit Focus/Plan Next Note Type Treatment Note Next Visit Plan hip mobilizations MET. STM to glute, glute/hip strength harrison rotation. DL vs SL bridge. supine hip flex w/ band, progress to over table w / db/banded wt. pallof, core bracing. Sciatic nerve glide, glute med strengthening, glute max strengthening quadruped mobility, hip ER/IR mobility
--- NOTE | 2024-11-07 08:16 | PT.OTN ---
Current Diagnoses Pain in left hip (11/07/24) Stiffness of left hip, not elsewhere classified (11/07/24) Stiffness of other specified joint, not elsewhere classified (11/07/24) Other lack of coordination (11/07/24) Weakness (11/07/24) Physical Therapy Treatment Note PT-OP-A Visit Information Start: 10/30/24 16:07 Freq: Status: Active Protocol: Document 11/07/24 07:29 NM (Rec: 11/07/24 08:16 NM [id number]) Out-Patient Physical Therapy Visit Information Visit Information Visit Type Treatment Note Visit Start Time 07:31 Visit Stop Time 08:13 Visit Number 3 Evaluation Information Evaluation Date 10/31/24 Precautions Precautions RA PT-OP-B Current Condition Start: 10/30/24 16:07 Freq: Status: Active Protocol: Document 10/31/24 11:35 NM (Rec: 10/31/24 12:27 NM [id number]) Current Condition History of Current Condition Onset Date chronic Current Complaints pain, weakness History of Current Condition Pt reports on-off pain for years. She reports pain in L side, inside of the bone. She reports when running, if it hard to lift leg to run, has pain in glute. She has had pain at night, wakes her up. feels deep. She has a hx of sciatic pain on L side. She sees a chiro, 1x/month helps with pain in back (mid-low back). 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 Used to have pain with sleeping on side, but now any position. Has RA, has flare ups, dx 7 years ago (on medication to manage); saw rheum 1 month ago, has follow up in a few weeks. When she starts running, worse if already irritated; feels weak. No hx of injuries to hip. hx of several ankle injuries B, L >R- limited motion L Prior Treatments and Tests August 2024 L hip xray- Impression: minimal bilateral hip osteoarthritis, greater on the left side. Current Functional Impairments (Reported) Functional Limitations- Recreation/ wt lifting 3x/wk Hobbies running 3x/wk (5-6 mi, 4 mi) > 2x/wk PT-OP-C Subjective Start: 10/31/24 16:25 Freq: Status: Active Protocol: Document 11/07/24 07:29 NM (Rec: 11/07/24 08:16 NM [id number]) OP-PT Subjective Patient Comments Patient Comments Pt reports that she is noticing improving with hip flexion, feels more free. She went to chiro, massage and PT. Feels more loos. Still having pain deep inside ant-lateral grion near crease. PT-OP-D Balance Start: 10/30/24 16:07 Freq: Status: Active Protocol: Document 10/31/24 11:35 NM (Rec: 10/31/24 12:27 NM [id number]) Balance Tests Single Limb Standing Single Limb- Right 5 Single Limb- Left 5 - demos trendelenburg PT-OP-E Functional Tests Start: 10/30/24 16:07 Freq: Status: Active Protocol: Document 10/31/24 11:35 NM (Rec: 10/31/24 12:27 NM [id number]) Functional Tests Squat Test Score 10 Comments demos hip shift and rot; B knee crepitus Single Leg Squat Test Score L weakness and valgus Comment R WFL PT-OP-F Manual Assessment Start: 10/30/24 16:07 Freq: Status: Active Protocol: Document 10/31/24 11:35 NM (Rec: 10/31/24 12:27 NM [id number]) Manual Assessments Soft Tissue Assessment Soft Tissue Mobility Assessment Tightness of hip flexors, glutes Elongated hamstrings Joint Mobility Assessment Joint Mobility Assessment Decreased mobility with rotation R hip, L hip has more mobility Hypomobility of lumbar spine, thoracic spine and L SIJ, tenderness at L SIJ PT-OP-G Mobility & Gait Start: 10/30/24 16:07 Freq: Status: Active Protocol: Document 10/31/24 11:35 NM (Rec: 10/31/24 12:27 NM [id number]) OP Gait Assessment Gait Gait Assistance Required: Independent Distance (Feet) 150 Assistive Devices Assistive Device None Gait Deviations General Gait Pattern Within Normal Limits PT-OP-J Posture/Palpation/Skin Start: 10/30/24 16:07 Freq: Status: Active Protocol: Document 10/31/24 11:35 NM (Rec: 10/31/24 12:27 NM [id number]) Posture Evaluation Position Standing Head/C-Spine Posture Forward Head Shoulder Posture (L) Rounded,(R) Rounded Scapula Posture (L) Neutral,(R) Neutral Pelvis Posture Anteriorly Tilted,(R) Rotated Anterior Knee Posture (L) Genu Valgus,(R) Genu Valgus Ankle/Foot Posture (L) Pronated,(R) Pronated Comments Posture Comments Demos hypermobility in B elbows and knees Palpation Assessment Location L hip Palpation Details No tenderness at groin Tightness at hip flexors Tenderness at glute, piriformis. Trigger points noted at glutes/piriformis harrison behind greater trochanter PT-OP-K Range of Motion Start: 10/30/24 16:07 Freq: Status: Active Protocol: Document 10/31/24 11:35 NM (Rec: 10/31/24 12:27 NM [id number]) Lumbar Spine Range of Motion Lumbar Spine Active Percentage Flexion 100 Extension 100 Rotation Left 50 Rotation Right 50 Lateral Flexion Left 100 Lateral Flexion Right 100 Comments R LF pulls on L lateral; stiffness w/ rotation; R drop w/ L stance Hip Goniometric Range of Motion Hip Right Flexion w/Knee Flexed 125 Extension 10 Abduction 25 Internal Rotation 35 External Rotation 35 Left Flexion w/Knee Flexed 130 Extension 10 Abduction 20 Internal Rotation 45 External Rotation 28 Comments IR tightness, same pain PT-OP-L Special Tests Start: 10/30/24 16:07 Freq: Status: Active Protocol: Document 10/31/24 11:35 NM (Rec: 10/31/24 12:27 NM [id number]) Special Tests Lumbar Spine Special Tests Gonzales/quadrant Test Results + Comments L local, Radic to bottom Hip Special Tests Scour Test Test Results - Stinchfield Resisted Hip Flexion Test Results - Labral tests Test Results - FADIR Test Results - Comments reproduced with cross body adduction and SLR passively SAMANTHA Test Results + Comments in glute, less on L side PT-OP-M Strength Start: 10/30/24 16:07 Freq: Status: Active Protocol: Document 10/31/24 11:35 NM (Rec: 10/31/24 12:27 NM [id number]) Trunk Strength Trunk Manual Muscle Testing Flexion 4 Good Extension 4 Good Rotation Left 4 Good Rotation Right 4 Good Lateral Flexion Left 4 Good Lateral Flexion Right 4 Good Hip Strength Hip Manual Muscle Testing Right Flexion (L2) 4+ Good+ Extension (S1) 4 Good Abduction 4+ Good+ Adduction 4+ Good+ External Rotation 4+ Good+ Internal Rotation 4+ Good+ Left Flexion (L2) 4 Good Extension (S1) 4 Good Abduction 4- Good- Adduction 4 Good External Rotation 4 Good Internal Rotation 4- Good- Comments pain with abduction resisted Knee Strength Knee Manual Muscle Testing Right Flexion (S2) 4+ Good+ Extension (L3) 4+ Good+ Left Flexion (S2) 4 Good Extension (L3) 4 Good Comments pain with HS, reproduced in glute Ankle/Foot Strength Ankle and Foot Manual Muscle Testing Right Dorsiflexion (L4) 4 Good Plantarflexion (S1) 4 Good Inversion 4 Good Eversion (S1) 4 Good Left Dorsiflexion (L4) 4 Good Plantarflexion (S1) 4 Good Inversion 4 Good Eversion (S1) 4 Good PT-OP-Q Treatments Start: 10/30/24 16:07 Freq: Status: Active Protocol: Document 11/07/24 07:29 NM (Rec: 11/07/24 08:16 NM [id number]) Therapeutic Exercises Supine Exercises hip flexion Supine Exercise Name HEP Side bilateral Resistance level 2 band at toes Reps/Minutes 2x10 ea Comments pain free hip flexion gapping Supine Exercise Name 1. w/ towel, 2. with level 5 band on mat Side left Reps/Minutes 10 ea Comments post manual tx Standing Exercises single leg squat Side bilateral Equipment Used with slider Reps/Minutes 10 ea Comments cued hip hinge Other Exercises quadruped Other Exercise Name 1. hip swivels, 2. cat camel, 3. hip IR rockback Side bilateral Reps/Minutes 1. 30, 2. 10, 3. 10 Comments pain free; cued control, segmental movement, pelvic rot Manual Therapy Treatment Consent Patient gave verbal consent for manual Yes treatment Soft Tissue Mobilization L hip Body Location hip flexors Mobilization Type Rolling,Sustained Pressure Intensity/Depth Moderate Body Position Hooklying Comments with lateral distraction at iliac crest. Monitored for pain Joint Mobilizations L hip Direction inf, lat Grade III Body Position Hooklying Reps/Duration 4x30 ea Comments with functional movement. Monitored for pain PT-OP-T Assessment and Plan Start: 10/30/24 16:07 Freq: Status: Active Protocol: Document 11/07/24 07:29 NM (Rec: 11/07/24 08:16 NM [id number]) Physical Therapy Assessment Goals Three Impairment sleeping impaired d/t pain Short Term Goal (STG) Pt will report that she is waking <50% of the time due to hip pain STG Duration 8 weeks Senior Living Goal (LTG) Pt will report that she is not waking due to hip pain LTG Duration 12 weeks Two Impairment pain with running Short Term Goal (STG) Pt will improve global hip and knee strength to at least 4+/ 5 in order increase strength and stability during running STG Duration 8 weeks Senior Living Goal (LTG) Pt will report that she has hip pain <3/10 with running LTG Duration 12 weeks One Impairment not performing HEP Senior Living Goal (LTG) Pt will be IND with HEP at least 3x/wk in order to maximize progression with PT and to transition to maintenance program following discharge LTG Duration 12 weeks Assessment Summary Assessment Pt responds well to progressive hip strengthening and hip mobility. Initiated hip mobilization with strap then resistance band, which improves pain symptoms at groin. Educated on use of band at home for HEP. Followed with functional strengthening to assist with limb advancement during running. Pt most challenged by quadruped hip mobility, especially with hip IR. Will continue to progress in future sessions. Physical Therapy Plan Frequency and Duration Frequency of Treatment 1-2x/wk Duration of treatment (weeks) 12 Plan of Care Start Date 10/31/24 Plan of Care End Date 01/25/25 Therapeutic Interventions Therapeutic Interventions Balance Training,Gait Training ,Home Exercise Program,Joint Mobilizations,Manual Therapy, Neuromuscular Re-education, Orthotic/Prosthetic Management ,Patient/Caregiver Education, Self-Care/Home Management, Sensory Integration,Soft Tissue Mobilization,Taping, Therapeutic Activities, Therapeutic Exercises Modalities Cold Pack/Ice Massage,Electric Stimulation,Hot Packs, Ultrasound Next Visit Focus/Plan Next Note Type Treatment Note Next Visit Plan hip mobilizations as needed ( also w/ hip ext) STM to glute, hip flexors. glute/hip strength harrison rotation w/ slider, quadruped strengthening. standing hip flexion w/ band at wall. pallof, core bracing supine > seated on ball > standing depending on tolerance. Sciatic nerve glide, glute med strengthening, glute max strengthening
--- NOTE | 2024-11-12 09:45 | PT.OTN ---
Current Diagnoses Pain in left hip (11/12/24) Stiffness of left hip, not elsewhere classified (11/12/24) Stiffness of other specified joint, not elsewhere classified (11/12/24) Other lack of coordination (11/12/24) Weakness (11/12/24) Physical Therapy Treatment Note PT-OP-A Visit Information Start: 10/30/24 16:07 Freq: Status: Active Protocol: Document 11/12/24 09:05 SP (Rec: 11/12/24 09:50 SP [id number]) Out-Patient Physical Therapy Visit Information Visit Information Visit Type Treatment Note Visit Start Time 09:05 Visit Stop Time 09:45 Visit Number 4 Number of COOPERATIVE EDUCATION COORDINATOR Visits 1 Precautions Precautions RA PT-OP-B Current Condition Start: 10/30/24 16:07 Freq: Status: Active Protocol: Document 10/31/24 11:35 NM (Rec: 10/31/24 12:27 NM [id number]) Current Condition History of Current Condition Onset Date chronic Current Complaints pain, weakness History of Current Condition Pt reports on-off pain for years. She reports pain in L side, inside of the bone. She reports when running, if it hard to lift leg to run, has pain in glute. She has had pain at night, wakes her up. feels deep. She has a hx of sciatic pain on L side. She sees a chiro, 1x/month helps with pain in back (mid-low back). 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 Used to have pain with sleeping on side, but now any position. Has RA, has flare ups, dx 7 years ago (on medication to manage); saw rheum 1 month ago, has follow up in a few weeks. When she starts running, worse if already irritated; feels weak. No hx of injuries to hip. hx of several ankle injuries B, L >R- limited motion L Prior Treatments and Tests August 2024 L hip xray- Impression: minimal bilateral hip osteoarthritis, greater on the left side. Current Functional Impairments (Reported) Functional Limitations- Recreation/ wt lifting 3x/wk Hobbies running 3x/wk (5-6 mi, 4 mi) > 2x/wk PT-OP-C Subjective Start: 10/31/24 16:25 Freq: Status: Active Protocol: Document 11/12/24 09:05 SP (Rec: 11/12/24 09:50 SP [id number]) OP-PT Subjective Patient Comments Patient Comments Pt reports felt better after previous session vs after last tx and unsrue why. Arrival having L SI pain. Compliant and no pain performing them PT-OP-D Balance Start: 10/30/24 16:07 Freq: Status: Active Protocol: Document 10/31/24 11:35 NM (Rec: 10/31/24 12:27 NM [id number]) Balance Tests Single Limb Standing Single Limb- Right 5 Single Limb- Left 5 - demos trendelenburg PT-OP-E Functional Tests Start: 10/30/24 16:07 Freq: Status: Active Protocol: Document 10/31/24 11:35 NM (Rec: 10/31/24 12:27 NM [id number]) Functional Tests Squat Test Score 10 Comments demos hip shift and rot; B knee crepitus Single Leg Squat Test Score L weakness and valgus Comment R WFL PT-OP-F Manual Assessment Start: 10/30/24 16:07 Freq: Status: Active Protocol: Document 10/31/24 11:35 NM (Rec: 10/31/24 12:27 NM [id number]) Manual Assessments Soft Tissue Assessment Soft Tissue Mobility Assessment Tightness of hip flexors, glutes Elongated hamstrings Joint Mobility Assessment Joint Mobility Assessment Decreased mobility with rotation R hip, L hip has more mobility Hypomobility of lumbar spine, thoracic spine and L SIJ, tenderness at L SIJ PT-OP-G Mobility & Gait Start: 10/30/24 16:07 Freq: Status: Active Protocol: Document 10/31/24 11:35 NM (Rec: 10/31/24 12:27 NM [id number]) OP Gait Assessment Gait Gait Assistance Required: Independent Distance (Feet) 150 Assistive Devices Assistive Device None Gait Deviations General Gait Pattern Within Normal Limits PT-OP-J Posture/Palpation/Skin Start: 10/30/24 16:07 Freq: Status: Active Protocol: Document 10/31/24 11:35 NM (Rec: 10/31/24 12:27 NM [id number]) Posture Evaluation Position Standing Head/C-Spine Posture Forward Head Shoulder Posture (L) Rounded,(R) Rounded Scapula Posture (L) Neutral,(R) Neutral Pelvis Posture Anteriorly Tilted,(R) Rotated Anterior Knee Posture (L) Genu Valgus,(R) Genu Valgus Ankle/Foot Posture (L) Pronated,(R) Pronated Comments Posture Comments Demos hypermobility in B elbows and knees Palpation Assessment Location L hip Palpation Details No tenderness at groin Tightness at hip flexors Tenderness at glute, piriformis. Trigger points noted at glutes/piriformis harrison behind greater trochanter PT-OP-K Range of Motion Start: 10/30/24 16:07 Freq: Status: Active Protocol: Document 10/31/24 11:35 NM (Rec: 10/31/24 12:27 NM [id number]) Lumbar Spine Range of Motion Lumbar Spine Active Percentage Flexion 100 Extension 100 Rotation Left 50 Rotation Right 50 Lateral Flexion Left 100 Lateral Flexion Right 100 Comments R LF pulls on L lateral; stiffness w/ rotation; R drop w/ L stance Hip Goniometric Range of Motion Hip Right Flexion w/Knee Flexed 125 Extension 10 Abduction 25 Internal Rotation 35 External Rotation 35 Left Flexion w/Knee Flexed 130 Extension 10 Abduction 20 Internal Rotation 45 External Rotation 28 Comments IR tightness, same pain PT-OP-L Special Tests Start: 10/30/24 16:07 Freq: Status: Active Protocol: Document 10/31/24 11:35 NM (Rec: 10/31/24 12:27 NM [id number]) Special Tests Lumbar Spine Special Tests Gonzales/quadrant Test Results + Comments L local, Radic to bottom Hip Special Tests Scour Test Test Results - Stinchfield Resisted Hip Flexion Test Results - Labral tests Test Results - FADIR Test Results - Comments reproduced with cross body adduction and SLR passively SAMANTHA Test Results + Comments in glute, less on L side PT-OP-M Strength Start: 10/30/24 16:07 Freq: Status: Active Protocol: Document 10/31/24 11:35 NM (Rec: 10/31/24 12:27 NM [id number]) Trunk Strength Trunk Manual Muscle Testing Flexion 4 Good Extension 4 Good Rotation Left 4 Good Rotation Right 4 Good Lateral Flexion Left 4 Good Lateral Flexion Right 4 Good Hip Strength Hip Manual Muscle Testing Right Flexion (L2) 4+ Good+ Extension (S1) 4 Good Abduction 4+ Good+ Adduction 4+ Good+ External Rotation 4+ Good+ Internal Rotation 4+ Good+ Left Flexion (L2) 4 Good Extension (S1) 4 Good Abduction 4- Good- Adduction 4 Good External Rotation 4 Good Internal Rotation 4- Good- Comments pain with abduction resisted Knee Strength Knee Manual Muscle Testing Right Flexion (S2) 4+ Good+ Extension (L3) 4+ Good+ Left Flexion (S2) 4 Good Extension (L3) 4 Good Comments pain with HS, reproduced in glute Ankle/Foot Strength Ankle and Foot Manual Muscle Testing Right Dorsiflexion (L4) 4 Good Plantarflexion (S1) 4 Good Inversion 4 Good Eversion (S1) 4 Good Left Dorsiflexion (L4) 4 Good Plantarflexion (S1) 4 Good Inversion 4 Good Eversion (S1) 4 Good PT-OP-Q Treatments Start: 10/30/24 16:07 Freq: Status: Active Protocol: Document 11/12/24 09:05 SP (Rec: 11/12/24 09:50 SP [id number]) Therapeutic Exercises Supine Exercises Larry stretch Supine Exercise Name added to HEP- forgot give HO Side bilateral Resistance L>R tightness releases Reps/Minutes 60 SH Comments good feedback anterior hip stretch- cued breath figure 4 Supine Exercise Name from supine HEP Side bilateral Resistance ankle over opp knee, opp leg straight Reps/Minutes 60 ea with little tightness rotation, not pain Comments post manual; feels in appropriate spot Standing Exercises paloff press Standing Exercise Name added to HEP /c HO Side bilateral Resistance [place] green #3 band Reps/Minutes 15 reps each Comments cued athletic stance, TA, press out from navel single leg squat Standing Exercise Name added to HEP /c HO Side bilateral Equipment Used with slider (wash clothe hardwood floor home) Reps/Minutes 10 ea Comments Improved form hip hinge Other Exercises quadruped Other Exercise Name 1. hip swivels, 2. cat camel, 3. hip IR rockback Side bilateral Reps/Minutes 1. 30, 2. 10, 3. 10 Comments pain free; cued control, segmental movement, pelvic rot Manual Therapy Treatment Consent Patient gave verbal consent for manual Yes treatment Soft Tissue Mobilization L hip Body Location hip ERs, glut med& max, Pir, TFL Mobilization Type Rolling,Sustained Pressure, Other Intensity/Depth Moderate Body Position R SL & Prone Comments STMs & MWM with hip IR/ ER Joint Mobilizations L hip Joint L SI Direction PA Grade III Body Position Prone Reps/Duration 30 SH x2 Comments breath- good response pinching at SI releases. PT-OP-T Assessment and Plan Start: 10/30/24 16:07 Freq: Status: Active Protocol: Document 11/12/24 09:05 SP (Rec: 11/12/24 09:50 SP [id number]) Physical Therapy Assessment Goals Three Impairment sleeping impaired d/t pain Short Term Goal (STG) Pt will report that she is waking <50% of the time due to hip pain STG Duration 8 weeks Retirement Goal (LTG) Pt will report that she is not waking due to hip pain LTG Duration 12 weeks Two Impairment pain with running Short Term Goal (STG) Pt will improve global hip and knee strength to at least 4+/ 5 in order increase strength and stability during running STG Duration 8 weeks Retirement Goal (LTG) Pt will report that she has hip pain <3/10 with running LTG Duration 12 weeks One Impairment not performing HEP Early Childhood Aide Classroom Goal (LTG) Pt will be IND with HEP at least 3x/wk in order to maximize progression with PT and to transition to maintenance program following discharge LTG Duration 12 weeks Assessment Summary Assessment Pt pelvic alignment even arrival, decreased tightness over gluts and piriformis post manual. Ed use ball wall or hooklying over tennis ball sustained pressure sree vs hip IR/ ER/ heel slide. Cuing for slower pacing quadruped hip swivels. Good response to progression single leg star glides and resisted paloff oblique press outs with cues for neutral pelvis and TA engagement range maintain level pelvis. Pt reports no pain end tx. Physical Therapy Plan Frequency and Duration Frequency of Treatment 1-2x/wk Duration of treatment (weeks) 12 Plan of Care Start Date 10/31/24 Plan of Care End Date 01/25/25 Therapeutic Interventions Therapeutic Interventions Balance Training,Gait Training ,Home Exercise Program,Joint Mobilizations,Manual Therapy, Neuromuscular Re-education, Orthotic/Prosthetic Management ,Patient/Caregiver Education, Self-Care/Home Management, Sensory Integration,Soft Tissue Mobilization,Taping, Therapeutic Activities, Therapeutic Exercises Modalities Cold Pack/Ice Massage,Electric Stimulation,Hot Packs, Ultrasound Next Visit Focus/Plan Next Note Type Treatment Note Next Visit Plan Next: reviewe resisted paloff, SL squat slider. Forgot add Larry on HO, good hip flexor stretch. POC: hip mobilizations as needed (also w/ hip ext) STM to glute, hip flexors. glute/hip strength harrison rotation w/ slider, quadruped strengthening. standing hip flexion w/ band at wall. pallof, core bracing supine > seated on ball > standing depending on tolerance. Sciatic nerve glide, glute med strengthening, glute max strengthening
--- NOTE | 2024-11-29 12:20 | PT.OTN ---
Current Diagnoses Pain in left hip (11/29/24) Stiffness of left hip, not elsewhere classified (11/29/24) Stiffness of other specified joint, not elsewhere classified (11/29/24) Other lack of coordination (11/29/24) Weakness (11/29/24) Physical Therapy Treatment Note PT-OP-A Visit Information Start: 10/30/24 16:07 Freq: Status: Active Protocol: Document 11/29/24 11:38 SP (Rec: 11/29/24 12:38 SP [id number]) Out-Patient Physical Therapy Visit Information Visit Information Visit Type Treatment Note Visit Start Time 11:38 Visit Stop Time 12:20 Visit Number 5 Number of SHOP ESTIMATOR Visits 2 Evaluation Information Evaluation Date 10/31/24 Precautions Precautions RA PT-OP-B Current Condition Start: 10/30/24 16:07 Freq: Status: Active Protocol: Document 10/31/24 11:35 NM (Rec: 10/31/24 12:27 NM [id number]) Current Condition History of Current Condition Onset Date chronic Current Complaints pain, weakness History of Current Condition Pt reports on-off pain for years. She reports pain in L side, inside of the bone. She reports when running, if it hard to lift leg to run, has pain in glute. She has had pain at night, wakes her up. feels deep. She has a hx of sciatic pain on L side. She sees a chiro, 1x/month helps with pain in back (mid-low back). 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 Used to have pain with sleeping on side, but now any position. Has RA, has flare ups, dx 7 years ago (on medication to manage); saw rheum 1 month ago, has follow up in a few weeks. When she starts running, worse if already irritated; feels weak. No hx of injuries to hip. hx of several ankle injuries B, L >R- limited motion L Prior Treatments and Tests August 2024 L hip xray- Impression: minimal bilateral hip osteoarthritis, greater on the left side. Current Functional Impairments (Reported) Functional Limitations- Recreation/ wt lifting 3x/wk Hobbies running 3x/wk (5-6 mi, 4 mi) > 2x/wk PT-OP-C Subjective Start: 10/31/24 16:25 Freq: Status: Active Protocol: Document 11/29/24 11:38 SP (Rec: 11/29/24 12:38 SP [id number]) OP-PT Subjective Patient Comments Patient Comments Pt reports not much reducation pain in L hip after and since last tx. She reports the best relief when Sindhu (PT) used strap for decompression of her L hip. PT-OP-D Balance Start: 10/30/24 16:07 Freq: Status: Active Protocol: Document 10/31/24 11:35 NM (Rec: 10/31/24 12:27 NM [id number]) Balance Tests Single Limb Standing Single Limb- Right 5 Single Limb- Left 5 - demos trendelenburg PT-OP-E Functional Tests Start: 10/30/24 16:07 Freq: Status: Active Protocol: Document 10/31/24 11:35 NM (Rec: 10/31/24 12:27 NM [id number]) Functional Tests Squat Test Score 10 Comments demos hip shift and rot; B knee crepitus Single Leg Squat Test Score L weakness and valgus Comment R WFL PT-OP-F Manual Assessment Start: 10/30/24 16:07 Freq: Status: Active Protocol: Document 10/31/24 11:35 NM (Rec: 10/31/24 12:27 NM [id number]) Manual Assessments Soft Tissue Assessment Soft Tissue Mobility Assessment Tightness of hip flexors, glutes Elongated hamstrings Joint Mobility Assessment Joint Mobility Assessment Decreased mobility with rotation R hip, L hip has more mobility Hypomobility of lumbar spine, thoracic spine and L SIJ, tenderness at L SIJ PT-OP-G Mobility & Gait Start: 10/30/24 16:07 Freq: Status: Active Protocol: Document 10/31/24 11:35 NM (Rec: 10/31/24 12:27 NM [id number]) OP Gait Assessment Gait Gait Assistance Required: Independent Distance (Feet) 150 Assistive Devices Assistive Device None Gait Deviations General Gait Pattern Within Normal Limits PT-OP-J Posture/Palpation/Skin Start: 10/30/24 16:07 Freq: Status: Active Protocol: Document 10/31/24 11:35 NM (Rec: 10/31/24 12:27 NM [id number]) Posture Evaluation Position Standing Head/C-Spine Posture Forward Head Shoulder Posture (L) Rounded,(R) Rounded Scapula Posture (L) Neutral,(R) Neutral Pelvis Posture Anteriorly Tilted,(R) Rotated Anterior Knee Posture (L) Genu Valgus,(R) Genu Valgus Ankle/Foot Posture (L) Pronated,(R) Pronated Comments Posture Comments Demos hypermobility in B elbows and knees Palpation Assessment Location L hip Palpation Details No tenderness at groin Tightness at hip flexors Tenderness at glute, piriformis. Trigger points noted at glutes/piriformis harrison behind greater trochanter PT-OP-K Range of Motion Start: 10/30/24 16:07 Freq: Status: Active Protocol: Document 10/31/24 11:35 NM (Rec: 10/31/24 12:27 NM [id number]) Lumbar Spine Range of Motion Lumbar Spine Active Percentage Flexion 100 Extension 100 Rotation Left 50 Rotation Right 50 Lateral Flexion Left 100 Lateral Flexion Right 100 Comments R LF pulls on L lateral; stiffness w/ rotation; R drop w/ L stance Hip Goniometric Range of Motion Hip Right Flexion w/Knee Flexed 125 Extension 10 Abduction 25 Internal Rotation 35 External Rotation 35 Left Flexion w/Knee Flexed 130 Extension 10 Abduction 20 Internal Rotation 45 External Rotation 28 Comments IR tightness, same pain PT-OP-L Special Tests Start: 10/30/24 16:07 Freq: Status: Active Protocol: Document 10/31/24 11:35 NM (Rec: 10/31/24 12:27 NM [id number]) Special Tests Lumbar Spine Special Tests Gonzales/quadrant Test Results + Comments L local, Radic to bottom Hip Special Tests Scour Test Test Results - Stinchfield Resisted Hip Flexion Test Results - Labral tests Test Results - FADIR Test Results - Comments reproduced with cross body adduction and SLR passively SAMANTHA Test Results + Comments in glute, less on L side PT-OP-M Strength Start: 10/30/24 16:07 Freq: Status: Active Protocol: Document 10/31/24 11:35 NM (Rec: 10/31/24 12:27 NM [id number]) Trunk Strength Trunk Manual Muscle Testing Flexion 4 Good Extension 4 Good Rotation Left 4 Good Rotation Right 4 Good Lateral Flexion Left 4 Good Lateral Flexion Right 4 Good Hip Strength Hip Manual Muscle Testing Right Flexion (L2) 4+ Good+ Extension (S1) 4 Good Abduction 4+ Good+ Adduction 4+ Good+ External Rotation 4+ Good+ Internal Rotation 4+ Good+ Left Flexion (L2) 4 Good Extension (S1) 4 Good Abduction 4- Good- Adduction 4 Good External Rotation 4 Good Internal Rotation 4- Good- Comments pain with abduction resisted Knee Strength Knee Manual Muscle Testing Right Flexion (S2) 4+ Good+ Extension (L3) 4+ Good+ Left Flexion (S2) 4 Good Extension (L3) 4 Good Comments pain with HS, reproduced in glute Ankle/Foot Strength Ankle and Foot Manual Muscle Testing Right Dorsiflexion (L4) 4 Good Plantarflexion (S1) 4 Good Inversion 4 Good Eversion (S1) 4 Good Left Dorsiflexion (L4) 4 Good Plantarflexion (S1) 4 Good Inversion 4 Good Eversion (S1) 4 Good PT-OP-Q Treatments Start: 10/30/24 16:07 Freq: Status: Active Protocol: Document 11/29/24 11:38 SP (Rec: 11/29/24 12:38 SP [id number]) Therapeutic Exercises Supine Exercises figure 4 Supine Exercise Name from supine HEP Side bilateral Resistance ankle over opp knee, opp leg straight Reps/Minutes 60 ea with little tightness rotation, not pain Comments post manualt Sitting Exercises TB IR & ER Sitting Exercise Name added to HEP /c HO: IR and ER Side left Resistance Tb #2 anchored RLE IR, chair leg ER Equipment Used tball between knees Reps/Minutes 10 reps Comments cued set up and reported hip tiring. Standing Exercises glut med wall slide Standing Exercise Name added to HEP/c HO: SLS hip elevation Side bilateral Resistance L>R AROM Equipment Used hip elevation side stance to wall Reps/Minutes 8 reps Comments cued set up and pelvis lift/ opp glut med engagement- good tiring Other Exercises self hip mobility Other Exercise Name reviewed declined HO: hip inf, lateral glide Side left Equipment Used hooklying piriformis pos, quadruped anchored behind bottom table Comments good feedback response gapping stretch hip pigon pose Other Exercise Name reviewed self stretch and MWM hip inf/lateral glide /c strap Side left Equipment Used /c strap anchored under table Reps/Minutes stretch 30 SH /c and /s strap Manual Therapy Treatment Consent Patient gave verbal consent for manual Yes treatment Soft Tissue Mobilization L hip Body Location hip ERs, glut med Mobilization Type Rolling,Sustained Pressure, Other Intensity/Depth Moderate Body Position Prone Comments STMs & MWM with hip IR/ ER, CR ER with AP prox femur- improved hip ER Joint Mobilizations L hip Joint L SI Direction PA Grade III Body Position Prone Reps/Duration 30 SH x2 Comments with mobility strap: 1. MWM prone hip IR/ER 2. between CR hip ER holds /c PA prox femur 3. hooklying MWM hip IR/ ER- lateral and inferior glide PT-OP-T Assessment and Plan Start: 10/30/24 16:07 Freq: Status: Active Protocol: Document 11/29/24 11:38 SP (Rec: 11/29/24 12:38 SP [id number]) Physical Therapy Assessment Goals Three Impairment sleeping impaired d/t pain Short Term Goal (STG) Pt will report that she is waking <50% of the time due to hip pain STG Duration 8 weeks Press Secretary Goal (LTG) Pt will report that she is not waking due to hip pain LTG Duration 12 weeks Two Impairment pain with running Short Term Goal (STG) Pt will improve global hip and knee strength to at least 4+/ 5 in order increase strength and stability during running STG Duration 8 weeks Shelter Goal (LTG) Pt will report that she has hip pain <3/10 with running LTG Duration 12 weeks One Impairment not performing HEP Press Secretary Goal (LTG) Pt will be IND with HEP at least 3x/wk in order to maximize progression with PT and to transition to maintenance program following discharge LTG Duration 12 weeks Assessment Summary Assessment Pt reports improved more mobility and no pain L hip post manual L hip posterior and lateral MWM and contract relax then carryover review self use heavy band vs sturdy strap for home decompression hooklying and quadruped. Initiated resisted seated hip IR and ER and standing lateral pelvic lifts at wall glut med strengthening to support WB, ROM and pain reducation/ diminished with gait mobility reported end tx. Cues for set up and direction movement with good feedback results muscle tiring and no pain, see HOs provided. Physical Therapy Plan Frequency and Duration Frequency of Treatment 1-2x/wk Duration of treatment (weeks) 12 Plan of Care Start Date 10/31/24 Plan of Care End Date 01/25/25 Therapeutic Interventions Therapeutic Interventions Balance Training,Gait Training ,Home Exercise Program,Joint Mobilizations,Manual Therapy, Neuromuscular Re-education, Orthotic/Prosthetic Management ,Patient/Caregiver Education, Self-Care/Home Management, Sensory Integration,Soft Tissue Mobilization,Taping, Therapeutic Activities, Therapeutic Exercises Modalities Cold Pack/Ice Massage,Electric Stimulation,Hot Packs, Ultrasound Next Visit Focus/Plan Next Note Type Treatment Note Next Visit Plan Next: REview self L hip mobs if needed, added glut med and TB Hip IR and ER, resisted paloff, SL squat slider. Give HO HEP Larry stretch. POC: hip mobilizations as needed (also w/ hip ext) STM to glute, hip flexors. glute/hip strength harrison rotation w/ slider, quadruped strengthening. standing hip flexion w/ band at wall. pallof, core bracing supine > seated on ball > standing depending on tolerance. Sciatic nerve glide, glute med strengthening, glute max strengthening
--- NOTE | 2024-12-04 09:46 | PT.OTN ---
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 She reports pain in L side, inside of the bone. She reports when running, if it hard to lift leg to run, has pain in glute. She has had pain at night, wakes her up. feels deep. She has a hx of sciatic pain on L side. She sees a chiro, 1x/month helps with pain in back (mid-low back). 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 Used to have pain with sleeping on side, but now any position. Has RA, has flare ups, dx 7 years ago (on medication to manage); saw rheum 1 month ago, has follow up in a few weeks. When she starts running, worse if already irritated; feels weak. No hx of injuries to hip. hx of several ankle injuries B, L >R- limited motion L Prior Treatments and Tests August 2024 L hip xray- Impression: minimal bilateral hip osteoarthritis, greater on the left side. Current Functional Impairments (Reported) Functional Limitations- Recreation/ wt lifting 3x/wk Hobbies running 3x/wk (5-6 mi, 4 mi) > 2x/wk PT-OP-C Subjective Start: 10/31/24 16:25 Freq: Status: Active Protocol: Document 12/04/24 09:08 SP (Rec: 12/04/24 09:47 SP [id number]) OP-PT Subjective Patient Comments Patient Comments Seeing improvement and pain not waking her up at night in hip. She wants to condense HEP and band hip mobs is helping. She stated the hip mob last tx still lasting, wants to incorporate again today. PT-OP-D Balance Start: 10/30/24 16:07 Freq: Status: Active Protocol: Document 10/31/24 11:35 NM (Rec: 10/31/24 12:27 NM [id number]) Balance Tests Single Limb Standing Single Limb- Right 5 Single Limb- Left 5 - demos trendelenburg PT-OP-E Functional Tests Start: 10/30/24 16:07 Freq: Status: Active Protocol: Document 10/31/24 11:35 NM (Rec: 10/31/24 12:27 NM [id number]) Functional Tests Squat Test Score 10 Comments demos hip shift and rot; B knee crepitus Single Leg Squat Test Score L weakness and valgus Comment R WFL PT-OP-F Manual Assessment Start: 10/30/24 16:07 Freq: Status: Active Protocol: Document 10/31/24 11:35 NM (Rec: 10/31/24 12:27 NM [id number]) Manual Assessments Soft Tissue Assessment Soft Tissue Mobility Assessment Tightness of hip flexors, glutes Elongated hamstrings Joint Mobility Assessment Joint Mobility Assessment Decreased mobility with rotation R hip, L hip has more mobility Hypomobility of lumbar spine, thoracic spine and L SIJ, tenderness at L SIJ PT-OP-G Mobility & Gait Start: 10/30/24 16:07 Freq: Status: Active Protocol: Document 10/31/24 11:35 NM (Rec: 10/31/24 12:27 NM [id number]) OP Gait Assessment Gait Gait Assistance Required: Independent Distance (Feet) 150 Assistive Devices Assistive Device None Gait Deviations General Gait Pattern Within Normal Limits PT-OP-J Posture/Palpation/Skin Start: 10/30/24 16:07 Freq: Status: Active Protocol: Document 10/31/24 11:35 NM (Rec: 10/31/24 12:27 NM [id number]) Posture Evaluation Position Standing Head/C-Spine Posture Forward Head Shoulder Posture (L) Rounded,(R) Rounded Scapula Posture (L) Neutral,(R) Neutral Pelvis Posture Anteriorly Tilted,(R) Rotated Anterior Knee Posture (L) Genu Valgus,(R) Genu Valgus Ankle/Foot Posture (L) Pronated,(R) Pronated Comments Posture Comments Demos hypermobility in B elbows and knees Palpation Assessment Location L hip Palpation Details No tenderness at groin Tightness at hip flexors Tenderness at glute, piriformis. Trigger points noted at glutes/piriformis harrison behind greater trochanter PT-OP-K Range of Motion Start: 10/30/24 16:07 Freq: Status: Active Protocol: Document 10/31/24 11:35 NM (Rec: 10/31/24 12:27 NM [id number]) Lumbar Spine Range of Motion Lumbar Spine Active Percentage Flexion 100 Extension 100 Rotation Left 50 Rotation Right 50 Lateral Flexion Left 100 Lateral Flexion Right 100 Comments R LF pulls on L lateral; stiffness w/ rotation; R drop w/ L stance Hip Goniometric Range of Motion Hip Right Flexion w/Knee Flexed 125 Extension 10 Abduction 25 Internal Rotation 35 External Rotation 35 Left Flexion w/Knee Flexed 130 Extension 10 Abduction 20 Internal Rotation 45 External Rotation 28 Comments IR tightness, same pain PT-OP-L Special Tests Start: 10/30/24 16:07 Freq: Status: Active Protocol: Document 10/31/24 11:35 NM (Rec: 10/31/24 12:27 NM [id number]) Special Tests Lumbar Spine Special Tests Gonzales/quadrant Test Results + Comments L local, Radic to bottom Hip Special Tests Scour Test Test Results - [place] Resisted Hip Flexion Test Results - Labral tests Test Results - FADIR Test Results - Comments reproduced with cross body adduction and SLR passively SAMANTHA Test Results + Comments in glute, less on L side PT-OP-M Strength Start: 10/30/24 16:07 Freq: Status: Active Protocol: Document 10/31/24 11:35 NM (Rec: 10/31/24 12:27 NM [id number]) Trunk Strength Trunk Manual Muscle Testing Flexion 4 Good Extension 4 Good Rotation Left 4 Good Rotation Right 4 Good Lateral Flexion Left 4 Good Lateral Flexion Right 4 Good Hip Strength Hip Manual Muscle Testing Right Flexion (L2) 4+ Good+ Extension (S1) 4 Good Abduction 4+ Good+ Adduction 4+ Good+ External Rotation 4+ Good+ Internal Rotation 4+ Good+ Left Flexion (L2) 4 Good Extension (S1) 4 Good Abduction 4- Good- Adduction 4 Good External Rotation 4 Good Internal Rotation 4- Good- Comments pain with abduction resisted Knee Strength Knee Manual Muscle Testing Right Flexion (S2) 4+ Good+ Extension (L3) 4+ Good+ Left Flexion (S2) 4 Good Extension (L3) 4 Good Comments pain with HS, reproduced in glute Ankle/Foot Strength Ankle and Foot Manual Muscle Testing Right Dorsiflexion (L4) 4 Good Plantarflexion (S1) 4 Good Inversion 4 Good Eversion (S1) 4 Good Left Dorsiflexion (L4) 4 Good Plantarflexion (S1) 4 Good Inversion 4 Good Eversion (S1) 4 Good PT-OP-Q Treatments Start: 10/30/24 16:07 Freq: Status: Active Protocol: Document 12/04/24 09:08 SP (Rec: 12/04/24 09:47 SP [id number]) Therapeutic Exercises Supine Exercises Larry stretch Supine Exercise Name Doesn't have high enough bed- changed to [place] pose single leg bridge Supine Exercise Name verbal review, performing home figure 4 Supine Exercise Name from supine HEP Side bilateral Resistance ankle over opp knee, opp leg straight Reps/Minutes 60 ea with little tightness rotation, not pain Comments post manualt Sidelying Exercises clam Sidelying Exercise Name HEP Side bilateral Resistance AROM > level 2 band Reps/Minutes 15 w/o band, 15 w/ band Comments pain free Sitting Exercises TB IR & ER Sitting Exercise Name reviewed: IR and ER Side left Resistance Tb #2 anchored RLE IR, chair leg ER Equipment Used tball between knees Reps/Minutes 10 reps Comments cued set up and reported hip tiring. Standing Exercises glut med wall slide Standing Exercise Name reviewed SLS hip elevation Side bilateral Resistance L>R AROM Equipment Used hip elevation side stance to wall Reps/Minutes 8 reps Comments cued set up and pelvis lift/ opp glut med engagement- good tiring paloff press Standing Exercise Name reviewed Side bilateral Resistance [place] #3 band Reps/Minutes 15 reps each Comments cued athletic stance, TA, press out from navel single leg squat Standing Exercise Name reviewed- Side bilateral Resistance AROM (add TB next tx) Equipment Used with slider (wash clothe hardwood floor home) Reps/Minutes 10 ea Comments improved level pelvis Other Exercises quadruped Other Exercise Name 1. rock back /c hip IR 2. progression to bird dog Reps/Minutes 10reps each, bird dog alternating Comments cued level pelvis L> R Manual Therapy Treatment Consent Patient gave verbal consent for manual Yes treatment Soft Tissue Mobilization L hip Body Location hip ERs, glut med, L QL Mobilization Type Rolling,Sustained Pressure, Other Intensity/Depth Moderate Body Position Prone Comments STMs & MWM with hip IR/ ER & hip elevation, CR ER with AP prox femur-improved rangehip ER Joint Mobilizations L hip Joint L SI Direction PA Grade II Body Position Prone Reps/Duration 30 SH x2 Comments with mobility strap: 1. MWM prone hip IR/ER, PA prox femur 2. between CR hip ER holds /c PA prox femur 3. hooklying strap MWM hip IR/ ER- lateral and inferior glide PT-OP-T Assessment and Plan Start: 10/30/24 16:07 Freq: Status: Active Protocol: Document 12/04/24 09:08 SP (Rec: 12/04/24 09:47 SP [id number]) Physical Therapy Assessment Goals Three Impairment sleeping impaired d/t pain Short Term Goal (STG) Pt will report that she is waking <50% of the time due to hip pain STG Duration 8 weeks Solar Business Developer Goal (LTG) Pt will report that she is not waking due to hip pain LTG Duration 12 weeks Two Impairment pain with running Short Term Goal (STG) Pt will improve global hip and knee strength to at least 4+/ 5 in order increase strength and stability during running STG Duration 8 weeks Prison Goal (LTG) Pt will report that she has hip pain <3/10 with running LTG Duration 12 weeks One Impairment not performing HEP Prison Goal (LTG) Pt will be IND with HEP at least 3x/wk in order to maximize progression with PT and to transition to maintenance program following discharge LTG Duration 12 weeks Assessment Summary Assessment Pt improving in L hip pain and tightness reduction with manual and stretching. Good understanding self use strap home has been helping. Ther ex review hip and core strengthening with occasional cues for proper form pelvic alignment. She reports finds good muscle tiring. Added 2 more appts in case needed in Dec. Physical Therapy Plan Frequency and Duration Frequency of Treatment 1-2x/wk Duration of treatment (weeks) 12 Plan of Care Start Date 10/31/24 Plan of Care End Date 01/25/25 Therapeutic Interventions Therapeutic Interventions Balance Training,Gait Training ,Home Exercise Program,Joint Mobilizations,Manual Therapy, Neuromuscular Re-education, Orthotic/Prosthetic Management ,Patient/Caregiver Education, Self-Care/Home Management, Sensory Integration,Soft Tissue Mobilization,Taping, Therapeutic Activities, Therapeutic Exercises Modalities Cold Pack/Ice Massage,Electric Stimulation,Hot Packs, Ultrasound Next Visit Focus/Plan Next Note Type Treatment Note Next Visit Plan Progress standing strengthening. Next HEP REview: SL bridge, bird dog, self L hip mobs if needed , glut med and TB Hip IR and ER, resisted paloff, SL squat slider. POC: hip mobilizations as needed (also w/ hip ext) STM to glute, hip flexors. glute/hip strength harrison rotation w/ slider, quadruped strengthening. standing hip flexion w/ band at wall. pallof, core bracing supine > seated on ball > standing depending on tolerance. Sciatic nerve glide, glute med strengthening, glute max strengthening
--- NOTE | 2024-12-11 10:59 | PT.OTN ---
Current Diagnoses Pain in left hip (12/11/24) Stiffness of left hip, not elsewhere classified (12/11/24) Stiffness of other specified joint, not elsewhere classified (12/11/24) Other lack of coordination (12/11/24) Weakness (12/11/24) Physical Therapy Treatment Note PT-OP-A Visit Information Start: 10/30/24 16:07 Freq: Status: Active Protocol: Document 12/11/24 09:03 NM (Rec: 12/11/24 09:48 NM [id number]) Out-Patient Physical Therapy Visit Information Visit Information Visit Type Progress Note Visit Start Time 09:07 Visit Stop Time 09:45 Visit Number 7 Number of RELATIONSHIP MANAGEMENT LEAD Visits 0 Evaluation Information Evaluation Date 10/31/24 Precautions Precautions RA PT-OP-B Current Condition Start: 10/30/24 16:07 Freq: Status: Active Protocol: Document 10/31/24 11:35 NM (Rec: 10/31/24 12:27 NM [id number]) Current Condition History of Current Condition Onset Date chronic Current Complaints pain, weakness History of Current Condition Pt reports on-off pain for years. She reports pain in L side, inside of the bone. She reports when running, if it hard to lift leg to run, has pain in glute. She has had pain at night, wakes her up. feels deep. She has a hx of sciatic pain on L side. She sees a chiro, 1x/month helps with pain in back (mid-low back). 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 Used to have pain with sleeping on side, but now any position. Has RA, has flare ups, dx 7 years ago (on medication to manage); saw rheum 1 month ago, has follow up in a few weeks. When she starts running, worse if already irritated; feels weak. No hx of injuries to hip. hx of several ankle injuries B, L >R- limited motion L Prior Treatments and Tests August 2024 L hip xray- Impression: minimal bilateral hip osteoarthritis, greater on the left side. Current Functional Impairments (Reported) Functional Limitations- Recreation/ wt lifting 3x/wk Hobbies running 3x/wk (5-6 mi, 4 mi) > 2x/wk PT-OP-C Subjective Start: 10/31/24 16:25 Freq: Status: Active Protocol: Document 12/11/24 09:03 NM (Rec: 12/11/24 09:48 NM [id number]) OP-PT Subjective Patient Comments Patient Comments Pt reports good and bad days, states that overall that has helped. The strap has helped with hip mobilizations. States that the hip flexors are much improved, especially with running; no longer has trouble lifting her leg by 80%. She still has periodic deep hip pain, still has periodic glute pain (40% less than at evaluation). PT-OP-D Balance Start: 10/30/24 16:07 Freq: Status: Active Protocol: Document 10/31/24 11:35 NM (Rec: 10/31/24 12:27 NM [id number]) Balance Tests Single Limb Standing Single Limb- Right 5 Single Limb- Left 5 - demos trendelenburg PT-OP-E Functional Tests Start: 10/30/24 16:07 Freq: Status: Active Protocol: Document 10/31/24 11:35 NM (Rec: 10/31/24 12:27 NM [id number]) Functional Tests Squat Test Score 10 Comments demos hip shift and rot; B knee crepitus Single Leg Squat Test Score L weakness and valgus Comment R WFL PT-OP-F Manual Assessment Start: 10/30/24 16:07 Freq: Status: Active Protocol: Document 10/31/24 11:35 NM (Rec: 10/31/24 12:27 NM [id number]) Manual Assessments Soft Tissue Assessment Soft Tissue Mobility Assessment Tightness of hip flexors, glutes Elongated hamstrings Joint Mobility Assessment Joint Mobility Assessment Decreased mobility with rotation R hip, L hip has more mobility Hypomobility of lumbar spine, thoracic spine and L SIJ, tenderness at L SIJ PT-OP-G Mobility & Gait Start: 10/30/24 16:07 Freq: Status: Active Protocol: Document 10/31/24 11:35 NM (Rec: 10/31/24 12:27 NM [id number]) OP Gait Assessment Gait Gait Assistance Required: Independent Distance (Feet) 150 Assistive Devices Assistive Device None Gait Deviations General Gait Pattern Within Normal Limits PT-OP-J Posture/Palpation/Skin Start: 10/30/24 16:07 Freq: Status: Active Protocol: Document 10/31/24 11:35 NM (Rec: 10/31/24 12:27 NM [id number]) Posture Evaluation Position Standing Head/C-Spine Posture Forward Head Shoulder Posture (L) Rounded,(R) Rounded Scapula Posture (L) Neutral,(R) Neutral Pelvis Posture Anteriorly Tilted,(R) Rotated Anterior Knee Posture (L) Genu Valgus,(R) Genu Valgus Ankle/Foot Posture (L) Pronated,(R) Pronated Comments Posture Comments Demos hypermobility in B elbows and knees Palpation Assessment Location L hip Palpation Details No tenderness at groin Tightness at hip flexors Tenderness at glute, piriformis. Trigger points noted at glutes/piriformis harrison behind greater trochanter PT-OP-K Range of Motion Start: 10/30/24 16:07 Freq: Status: Active Protocol: Document 10/31/24 11:35 NM (Rec: 10/31/24 12:27 NM [id number]) Lumbar Spine Range of Motion Lumbar Spine Active Percentage Flexion 100 Extension 100 Rotation Left 50 Rotation Right 50 Lateral Flexion Left 100 Lateral Flexion Right 100 Comments R LF pulls on L lateral; stiffness w/ rotation; R drop w/ L stance Hip Goniometric Range of Motion Hip Right Flexion w/Knee Flexed 125 Extension 10 Abduction 25 Internal Rotation 35 External Rotation 35 Left Flexion w/Knee Flexed 130 Extension 10 Abduction 20 Internal Rotation 45 External Rotation 28 Comments IR tightness, same pain PT-OP-L Special Tests Start: 10/30/24 16:07 Freq: Status: Active Protocol: Document 10/31/24 11:35 NM (Rec: 10/31/24 12:27 NM [id number]) Special Tests Lumbar Spine Special Tests Gonzales/quadrant Test Results + Comments L local, Radic to bottom Hip Special Tests Scour Test Test Results - [facility] Resisted Hip Flexion Test Results - Labral tests Test Results - FADIR Test Results - Comments reproduced with cross body adduction and SLR passively SAMANTHA Test Results + Comments in glute, less on L side PT-OP-M Strength Start: 10/30/24 16:07 Freq: Status: Active Protocol: Document 12/11/24 09:03 NM (Rec: 12/11/24 09:48 NM [id number]) Hip Strength Hip Manual Muscle Testing Right Flexion (L2) 4+ Good+ Extension (S1) 4 Good Abduction 4+ Good+ Adduction 4+ Good+ External Rotation 4+ Good+ Internal Rotation 4+ Good+ Left Flexion (L2) 4+ Good+ Extension (S1) 4+ Good+ Abduction 4 Good Adduction 4+ Good+ External Rotation 4 Good Internal Rotation 4 Good Comments pain with abduction resisted 12/11/23: still pain with hip abd but 4/5 Knee Strength Knee Manual Muscle Testing Right Flexion (S2) 4+ Good+ Extension (L3) 4+ Good+ Left Flexion (S2) 4+ Good+ Extension (L3) 4+ Good+ Comments pain with HS, reproduced in glute 12/11/24: 4+ for both, pain in hip w/ knee ext PT-OP-Q Treatments Start: 10/30/24 16:07 Freq: Status: Active Protocol: Document 12/11/24 09:03 NM (Rec: 12/11/24 09:48 NM [id number]) Therapeutic Exercises Sidelying Exercises glute medius isometric Sidelying Exercise Name sidelying hip abd isometric Side left Equipment Used pillow between legs, level 3 band at thighs Reps/Minutes 45 hold, 1 min rest between Comments monitored for pain; post manual, 70% effort; cued set up Standing Exercises RDL Standing Exercise Name trialed- staggered stance: RDL Side bilateral Reps/Minutes 10 Comments feels in L glute with L in flexion single leg squat Standing Exercise Name HEP review: 4 way Side bilateral Resistance level 2 band at thighs Equipment Used slider under foot Reps/Minutes 8 ea Comments edu to move band below knees Manual Therapy Treatment Consent Patient gave verbal consent for manual Yes treatment Soft Tissue Mobilization L hip Body Location hip ER, glutes, L QL Mobilization Type Rolling,Sustained Pressure, Other Intensity/Depth Moderate Body Position Prone Comments MWM hip IR/ER, hip ext. 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 L hip Joint L hip Direction inf, lat, PA Grade III Comments prone and hooklying w/ mobility strap PT-OP-T Assessment and Plan Start: 10/30/24 16:07 Freq: Status: Active Protocol: Document 12/11/24 09:03 NM (Rec: 12/11/24 09:48 NM [id number]) Physical Therapy Assessment Goals Three Impairment sleeping impaired d/t pain Short Term Goal (STG) Pt will report that she is waking <50% of the time due to hip pain 12/11/24: states 40% improved since evaluation, states waking up every night but states no longer having to take medication, readjusts with more relief STG Duration 8 weeks Manager Mental Health Goal (LTG) Pt will report that she is not waking due to hip pain LTG Duration 12 weeks Two Impairment pain with running Short Term Goal (STG) Pt will improve global hip and knee strength to at least 4+/ 5 in order increase strength and stability during running 12/11/24: L hip abd strength still most limited and painful 4/5, rest progressing 4+/5 STG Duration 8 weeks PROGRESSING 12/11/24 Manager Mental Health Goal (LTG) Pt will report that she has hip pain <3/10 with running LTG Duration 12 weeks One Impairment not performing HEP Longterm Goal (LTG) Pt will be IND with HEP at least 3x/wk in order to maximize progression with PT and to transition to maintenance program following discharge 12/11/24: compliant with HEP LTG Duration 12 weeks MET Progress Towards Goals Progress Towards Goals Progressing Toward Goals,Slow Progress due to Activity Tolerance Assessment Summary Assessment Trialed glute medius isometric in sidelying for pain management with L hip abduction with resisted testing and to improve lumbopelvic control during exercise/running. Education provided on execution, rationale, monitoring for pain ; cueing needed for set up and form. Trialed staggered RDL as part of glute progression; however, pt has increased L glute irritation following exercise, discontinued for session. Continues to have best response to pain management with L hip mobilizations especially into hip extension, SIJ mobiliziation. Pt reports glute discomfort at end of session, no increase with isometric but irritated following RDL. Physical Therapy Plan Frequency and Duration Frequency of Treatment 1-2x/wk Duration of treatment (weeks) 12 Plan of Care Start Date 10/31/24 Plan of Care End Date 01/25/25 Therapeutic Interventions Therapeutic Interventions Balance Training,Gait Training ,Home Exercise Program,Joint Mobilizations,Manual Therapy, Neuromuscular Re-education, Orthotic/Prosthetic Management ,Patient/Caregiver Education, Self-Care/Home Management, Sensory Integration,Soft Tissue Mobilization,Taping, Therapeutic Activities, Therapeutic Exercises Modalities Cold Pack/Ice Massage,Electric Stimulation,Hot Packs, Ultrasound Next Visit Focus/Plan Next Note Type Treatment Note Next Visit Plan Assess sree for banded slider. Address glute strength possible RDL without glute/SIJ irritation. Progress hip adduction/IR strengthening. POC: hip mobilizations as needed (also w/ hip ext) STM to glute, hip flexors. glute/hip strength harrison rotation w/ slider, quadruped strengthening. standing hip flexion w/ band at wall. pallof, core bracing supine > seated on ball > standing depending on tolerance. Sciatic nerve glide, glute med strengthening, glute max strengthening
--- NOTE | 2024-12-26 10:32 | PT.OTN ---
Current Diagnoses Pain in left hip (12/26/24) Stiffness of left hip, not elsewhere classified (12/26/24) Stiffness of other specified joint, not elsewhere classified (12/26/24) Other lack of coordination (12/26/24) Weakness (12/26/24) Physical Therapy Treatment Note PT-OP-A Visit Information Start: 10/30/24 16:07 Freq: Status: Active Protocol: Document 12/26/24 09:48 SP (Rec: 12/26/24 10:45 SP [id number]) Out-Patient Physical Therapy Visit Information Visit Information Visit Type Treatment Note Visit Start Time 09:48 Visit Stop Time 10:32 Visit Number 8 (01/07 with PN) Number of DRY PAN CHARGER Visits 1 Evaluation Information Evaluation Date 10/31/24 Precautions Precautions RA PT-OP-B Current Condition Start: 10/30/24 16:07 Freq: Status: Active Protocol: Document 10/31/24 11:35 NM (Rec: 10/31/24 12:27 NM [id number]) Current Condition History of Current Condition Onset Date chronic Current Complaints pain, weakness History of Current Condition Pt reports on-off pain for years. She reports pain in L side, inside of the bone. She reports when running, if it hard to lift leg to run, has pain in glute. She has had pain at night, wakes her up. feels deep. She has a hx of sciatic pain on L side. She sees a chiro, 1x/month helps with pain in back (mid-low back). 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 Used to have pain with sleeping on side, but now any position. Has RA, has flare ups, dx 7 years ago (on medication to manage); saw rheum 1 month ago, has follow up in a few weeks. When she starts running, worse if already irritated; feels weak. No hx of injuries to hip. hx of several ankle injuries B, L >R- limited motion L Prior Treatments and Tests August 2024 L hip xray- Impression: minimal bilateral hip osteoarthritis, greater on the left side. Current Functional Impairments (Reported) Functional Limitations- Recreation/ wt lifting 3x/wk Hobbies running 3x/wk (5-6 mi, 4 mi) > 2x/wk PT-OP-C Subjective Start: 10/31/24 16:25 Freq: Status: Active Protocol: Document 12/26/24 09:48 SP (Rec: 12/26/24 10:45 SP [id number]) OP-PT Subjective Patient Comments Patient Comments Pt arrives with HEP HOs and and want to see which to continue at this point, think there is another didn't HO for . Has returned to running, stronger advancement not like dragging anymore. Worse is when sleeping and ridiing in chair. No activity makes it worse. Has incorporated self mobs with strap and good relief. PT-OP-D Balance Start: 10/30/24 16:07 Freq: Status: Active Protocol: Document 10/31/24 11:35 NM (Rec: 10/31/24 12:27 NM [id number]) Balance Tests Single Limb Standing Single Limb- Right 5 Single Limb- Left 5 - demos trendelenburg PT-OP-E Functional Tests Start: 10/30/24 16:07 Freq: Status: Active Protocol: Document 10/31/24 11:35 NM (Rec: 10/31/24 12:27 NM [id number]) Functional Tests Squat Test Score 10 Comments demos hip shift and rot; B knee crepitus Single Leg Squat Test Score L weakness and valgus Comment R WFL PT-OP-F Manual Assessment Start: 10/30/24 16:07 Freq: Status: Active Protocol: Document 10/31/24 11:35 NM (Rec: 10/31/24 12:27 NM [id number]) Manual Assessments Soft Tissue Assessment Soft Tissue Mobility Assessment Tightness of hip flexors, glutes Elongated hamstrings Joint Mobility Assessment Joint Mobility Assessment Decreased mobility with rotation R hip, L hip has more mobility Hypomobility of lumbar spine, thoracic spine and L SIJ, tenderness at L SIJ PT-OP-G Mobility & Gait Start: 10/30/24 16:07 Freq: Status: Active Protocol: Document 10/31/24 11:35 NM (Rec: 10/31/24 12:27 NM [id number]) OP Gait Assessment Gait Gait Assistance Required: Independent Distance (Feet) 150 Assistive Devices Assistive Device None Gait Deviations General Gait Pattern Within Normal Limits PT-OP-J Posture/Palpation/Skin Start: 10/30/24 16:07 Freq: Status: Active Protocol: Document 10/31/24 11:35 NM (Rec: 10/31/24 12:27 NM [id number]) Posture Evaluation Position Standing Head/C-Spine Posture Forward Head Shoulder Posture (L) Rounded,(R) Rounded Scapula Posture (L) Neutral,(R) Neutral Pelvis Posture Anteriorly Tilted,(R) Rotated Anterior Knee Posture (L) Genu Valgus,(R) Genu Valgus Ankle/Foot Posture (L) Pronated,(R) Pronated Comments Posture Comments Demos hypermobility in B elbows and knees Palpation Assessment Location L hip Palpation Details No tenderness at groin Tightness at hip flexors Tenderness at glute, piriformis. Trigger points noted at glutes/piriformis harrison behind greater trochanter PT-OP-K Range of Motion Start: 10/30/24 16:07 Freq: Status: Active Protocol: Document 10/31/24 11:35 NM (Rec: 10/31/24 12:27 NM [id number]) Lumbar Spine Range of Motion Lumbar Spine Active Percentage Flexion 100 Extension 100 Rotation Left 50 Rotation Right 50 Lateral Flexion Left 100 Lateral Flexion Right 100 Comments R LF pulls on L lateral; stiffness w/ rotation; R drop w/ L stance Hip Goniometric Range of Motion Hip Right Flexion w/Knee Flexed 125 Extension 10 Abduction 25 Internal Rotation 35 External Rotation 35 Left Flexion w/Knee Flexed 130 Extension 10 Abduction 20 Internal Rotation 45 External Rotation 28 Comments IR tightness, same pain PT-OP-L Special Tests Start: 10/30/24 16:07 Freq: Status: Active Protocol: Document 10/31/24 11:35 NM (Rec: 10/31/24 12:27 NM [id number]) Special Tests Lumbar Spine Special Tests Gonzales/quadrant Test Results + Comments L local, Radic to bottom Hip Special Tests Scour Test Test Results - Stinchfield Resisted Hip Flexion Test Results - Labral tests Test Results - FADIR Test Results - Comments reproduced with cross body adduction and SLR passively SAMANTHA Test Results + Comments in glute, less on L side PT-OP-M Strength Start: 10/30/24 16:07 Freq: Status: Active Protocol: Document 12/11/24 09:03 NM (Rec: 12/11/24 09:48 NM [id number]) Hip Strength Hip Manual Muscle Testing Right Flexion (L2) 4+ Good+ Extension (S1) 4 Good Abduction 4+ Good+ Adduction 4+ Good+ External Rotation 4+ Good+ Internal Rotation 4+ Good+ Left Flexion (L2) 4+ Good+ Extension (S1) 4+ Good+ Abduction 4 Good Adduction 4+ Good+ External Rotation 4 Good Internal Rotation 4 Good Comments pain with abduction resisted 12/11/23: still pain with hip abd but 4/5 Knee Strength Knee Manual Muscle Testing Right Flexion (S2) 4+ Good+ Extension (L3) 4+ Good+ Left Flexion (S2) 4+ Good+ Extension (L3) 4+ Good+ Comments pain with HS, reproduced in glute 12/11/24: 4+ for both, pain in hip w/ knee ext PT-OP-Q Treatments Start: 10/30/24 16:07 Freq: Status: Active Protocol: Document 12/26/24 09:48 SP (Rec: 12/26/24 10:45 SP [id number]) Therapeutic Exercises Supine Exercises hip flexion gapping Supine Exercise Name self hip mob inferior KTC, posterolateral Fig 4 pos. Side left Reps/Minutes 10 ea Comments self post manual Prone Exercises Quad & Psoas stretch Prone Exercise Name added to HEP verbal /c HO discussion Side left Reps/Minutes recheck next tx Comments ed decrease anterior hip tension feels night/sitting Sitting Exercises TB IR & ER Sitting Exercise Name verbal review HEP Standing Exercises Single leg slider Standing Exercise Name HEP /c HO provided review: 12, 02/03, 6 and cross over behind (clock) Side bilateral Resistance AROM warm up, TB #2 at ankles Reps/Minutes AROM 5 reps each, 2 reps clock position TB #2 Comments good form, no pain with good muscular effort RDL Standing Exercise Name added to HEP: staggered stance : RDL Side bilateral Resistance AROM> 5# DB Reps/Minutes 5 reps each Comments feels L glut distal attachment not pain but disc /c pinch into flexion Manual Therapy Treatment Consent Patient gave verbal consent for manual Yes treatment Soft Tissue Mobilization L hip Body Location hip ER, glutes Mobilization Type Rolling,Sustained Pressure, Other Intensity/Depth Moderate Body Position Prone Comments MWM hip IR/ER, hip ext. Less discomfort but drawing in machine tender helper, CR hip ER. Joint Mobilizations L hip Joint L hip Direction inf, lat, PA Grade III Comments hooklying w/ mobility strap manual and self application review use L6 TB vs purchase lifting strap/bands for heavier support. PT-OP-T Assessment and Plan Start: 10/30/24 16:07 Freq: Status: Active Protocol: Document 12/26/24 09:48 SP (Rec: 12/26/24 10:45 SP [id number]) Physical Therapy Assessment Goals Three Impairment sleeping impaired d/t pain Short Term Goal (STG) Pt will report that she is waking <50% of the time due to hip pain 12/11/24: states 40% improved since evaluation, states waking up every night but states no longer having to take medication, readjusts with more relief STG Duration 8 weeks Prison Goal (LTG) Pt will report that she is not waking due to hip pain LTG Duration 12 weeks Two Impairment pain with running Short Term Goal (STG) Pt will improve global hip and knee strength to at least 4+/ 5 in order increase strength and stability during running 12/11/24: L hip abd strength still most limited and painful 4/5, rest progressing 4+/5 STG Duration 8 weeks PROGRESSING 12/11/24 Cobbler Upper Goal (LTG) Pt will report that she has hip pain <3/10 with running LTG Duration 12 weeks One Impairment not performing HEP Cobbler Upper Goal (LTG) Pt will be IND with HEP at least 3x/wk in order to maximize progression with PT and to transition to maintenance program following discharge 12/11/24: compliant with HEP LTG Duration 12 weeks MET Assessment Summary Assessment Pt good response to manual and review self application inf and posterolateral glide. Discussion end tx add quad and psoas stretch with HO but limited time perform but understood image and proper form. Less posterior hip discomfort during RDL after manual vs before, more mobiilty. Still feels sitting and sleeping comfort her trying figure out why. Will continue to work on problem solve next 2 tx, add more if needed next visit. Compliant with HEP, condensed today. Physical Therapy Plan Frequency and Duration Frequency of Treatment 1-2x/wk Duration of treatment (weeks) 12 Plan of Care Start Date 10/31/24 Plan of Care End Date 01/25/25 Therapeutic Interventions Therapeutic Interventions Balance Training,Gait Training ,Home Exercise Program,Joint Mobilizations,Manual Therapy, Neuromuscular Re-education, Orthotic/Prosthetic Management ,Patient/Caregiver Education, Self-Care/Home Management, Sensory Integration,Soft Tissue Mobilization,Taping, Therapeutic Activities, Therapeutic Exercises Modalities Cold Pack/Ice Massage,Electric Stimulation,Hot Packs, Ultrasound Next Visit Focus/Plan Next Note Type Treatment Note Next Visit Plan Assess response to AROM vs 5# DB RDL abd TB sliders and self stretch and mobs without glute/SIJ irritation. Next: Progress hip adduction/IR strengthening. POC: hip mobilizations as needed (also w/ hip ext) STM to glute, hip flexors. glute/hip strength harrison rotation w/ slider, quadruped strengthening. standing hip flexion w/ band at wall. pallof, core bracing supine > seated on ball > standing depending on tolerance. Sciatic nerve glide, glute med strengthening, glute max strengthening
--- NOTE | 2025-01-01 10:11 | PT.OTN ---
Current Diagnoses Pain in left hip (01/01/25) Stiffness of left hip, not elsewhere classified (01/01/25) Stiffness of other specified joint, not elsewhere classified (01/01/25) Other lack of coordination (01/01/25) Weakness (01/01/25) Physical Therapy Treatment Note PT-OP-A Visit Information Start: 10/30/24 16:07 Freq: Status: Active Protocol: Document 01/01/25 07:24 NM (Rec: 01/01/25 08:17 NM [id number]) Out-Patient Physical Therapy Visit Information Visit Information Visit Type Treatment Note Visit Start Time 07:32 Visit Stop Time 08:15 Visit Number 9 (02/04 with PN) Evaluation Information Evaluation Date 10/31/24 Precautions Precautions RA PT-OP-B Current Condition Start: 10/30/24 16:07 Freq: Status: Active Protocol: Document 10/31/24 11:35 NM (Rec: 10/31/24 12:27 NM [id number]) Current Condition History of Current Condition Onset Date chronic Current Complaints pain, weakness History of Current Condition Pt reports on-off pain for years. She reports pain in L side, inside of the bone. She reports when running, if it hard to lift leg to run, has pain in glute. She has had pain at night, wakes her up. feels deep. She has a hx of sciatic pain on L side. She sees a chiro, 1x/month helps with pain in back (mid-low back). 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 Used to have pain with sleeping on side, but now any position. Has RA, has flare ups, dx 7 years ago (on medication to manage); saw rheum 1 month ago, has follow up in a few weeks. When she starts running, worse if already irritated; feels weak. No hx of injuries to hip. hx of several ankle injuries B, L >R- limited motion L Prior Treatments and Tests August 2024 L hip xray- Impression: minimal bilateral hip osteoarthritis, greater on the left side. Current Functional Impairments (Reported) Functional Limitations- Recreation/ wt lifting 3x/wk Hobbies running 3x/wk (5-6 mi, 4 mi) > 2x/wk PT-OP-C Subjective Start: 10/31/24 16:25 Freq: Status: Active Protocol: Document 01/01/25 07:24 NM (Rec: 01/01/25 08:17 NM [id number]) OP-PT Subjective Patient Comments Patient Comments Pt reports frustrated because she is not waking up with pain at night in the front her hip but states that her back of her hip is still bothering her . Unsure if she should still do the ball mobilization at the back of her hip. She feels when riding in the car, sitting on bleachers. At her last RA appt, had x rays on hips showed only mild OA so unsure if that is what is bothering her vs something else in back of hip PT-OP-D Balance Start: 10/30/24 16:07 Freq: Status: Active Protocol: Document 10/31/24 11:35 NM (Rec: 10/31/24 12:27 NM [id number]) Balance Tests Single Limb Standing Single Limb- Right 5 Single Limb- Left 5 - demos trendelenburg PT-OP-E Functional Tests Start: 10/30/24 16:07 Freq: Status: Active Protocol: Document 10/31/24 11:35 NM (Rec: 10/31/24 12:27 NM [id number]) Functional Tests Squat Test Score 10 Comments demos hip shift and rot; B knee crepitus Single Leg Squat Test Score L weakness and valgus Comment R WFL PT-OP-F Manual Assessment Start: 10/30/24 16:07 Freq: Status: Active Protocol: Document 10/31/24 11:35 NM (Rec: 10/31/24 12:27 NM [id number]) Manual Assessments Soft Tissue Assessment Soft Tissue Mobility Assessment Tightness of hip flexors, glutes Elongated hamstrings Joint Mobility Assessment Joint Mobility Assessment Decreased mobility with rotation R hip, L hip has more mobility Hypomobility of lumbar spine, thoracic spine and L SIJ, tenderness at L SIJ PT-OP-G Mobility & Gait Start: 10/30/24 16:07 Freq: Status: Active Protocol: Document 10/31/24 11:35 NM (Rec: 10/31/24 12:27 NM [id number]) OP Gait Assessment Gait Gait Assistance Required: Independent Distance (Feet) 150 Assistive Devices Assistive Device None Gait Deviations General Gait Pattern Within Normal Limits PT-OP-J Posture/Palpation/Skin Start: 10/30/24 16:07 Freq: Status: Active Protocol: Document 10/31/24 11:35 NM (Rec: 10/31/24 12:27 NM [id number]) Posture Evaluation Position Standing Head/C-Spine Posture Forward Head Shoulder Posture (L) Rounded,(R) Rounded Scapula Posture (L) Neutral,(R) Neutral Pelvis Posture Anteriorly Tilted,(R) Rotated Anterior Knee Posture (L) Genu Valgus,(R) Genu Valgus Ankle/Foot Posture (L) Pronated,(R) Pronated Comments Posture Comments Demos hypermobility in B elbows and knees Palpation Assessment Location L hip Palpation Details No tenderness at groin Tightness at hip flexors Tenderness at glute, piriformis. Trigger points noted at glutes/piriformis harrison behind greater trochanter PT-OP-K Range of Motion Start: 10/30/24 16:07 Freq: Status: Active Protocol: Document 10/31/24 11:35 NM (Rec: 10/31/24 12:27 NM [id number]) Lumbar Spine Range of Motion Lumbar Spine Active Percentage Flexion 100 Extension 100 Rotation Left 50 Rotation Right 50 Lateral Flexion Left 100 Lateral Flexion Right 100 Comments R LF pulls on L lateral; stiffness w/ rotation; R drop w/ L stance Hip Goniometric Range of Motion Hip Right Flexion w/Knee Flexed 125 Extension 10 Abduction 25 Internal Rotation 35 External Rotation 35 Left Flexion w/Knee Flexed 130 Extension 10 Abduction 20 Internal Rotation 45 External Rotation 28 Comments IR tightness, same pain PT-OP-L Special Tests Start: 10/30/24 16:07 Freq: Status: Active Protocol: Document 10/31/24 11:35 NM (Rec: 10/31/24 12:27 NM [id number]) Special Tests Lumbar Spine Special Tests Gonzales/quadrant Test Results + Comments L local, Radic to bottom Hip Special Tests Scour Test Test Results - Stinchfield Resisted Hip Flexion Test Results - Labral tests Test Results - FADIR Test Results - Comments reproduced with cross body adduction and SLR passively SAMANTHA Test Results + Comments in glute, less on L side PT-OP-M Strength Start: 10/30/24 16:07 Freq: Status: Active Protocol: Document 12/11/24 09:03 NM (Rec: 12/11/24 09:48 NM [id number]) Hip Strength Hip Manual Muscle Testing Right Flexion (L2) 4+ Good+ Extension (S1) 4 Good Abduction 4+ Good+ Adduction 4+ Good+ External Rotation 4+ Good+ Internal Rotation 4+ Good+ Left Flexion (L2) 4+ Good+ Extension (S1) 4+ Good+ Abduction 4 Good Adduction 4+ Good+ External Rotation 4 Good Internal Rotation 4 Good Comments pain with abduction resisted 12/11/23: still pain with hip abd but 4/5 Knee Strength Knee Manual Muscle Testing Right Flexion (S2) 4+ Good+ Extension (L3) 4+ Good+ Left Flexion (S2) 4+ Good+ Extension (L3) 4+ Good+ Comments pain with HS, reproduced in glute 12/11/24: 4+ for both, pain in hip w/ knee ext PT-OP-Q Treatments Start: 10/30/24 16:07 Freq: Status: Active Protocol: Document 01/01/25 07:24 NM (Rec: 01/01/25 08:17 NM [id number]) Therapeutic Exercises Supine Exercises hip thrust Supine Exercise Name double leg (HEP- no HO as pt will be doing at gym c/ machine) Side bilateral Resistance level 3 band at thighs Equipment Used pillow behind back; supported at low plinth Reps/Minutes 2x12 Comments no back hip or SIJ pain; post manual tx Standing Exercises resisted stepping Standing Exercise Name lateral stepping, fwd/retro stepping - HEP (declines HO) Side bilateral Resistance level 3 band at ankles Equipment Used mini squat pose Reps/Minutes 2x25 ft ea Comments feels in glute but not painful Manual Therapy Treatment Consent Patient gave verbal consent for manual Yes treatment Soft Tissue Mobilization L hip Body Location hip ER, glutes Mobilization Type Rolling,Sustained Pressure, Other Intensity/Depth Moderate Body Position Prone Comments Trigger points at glute med/ max but not at tendons; tender but feels good Joint Mobilizations L hip Joint L hip, SIJ Direction ant, caudal Grade III Body Position Prone Reps/Duration 4x30 ea Comments MWM into hip extension. Feels relief at SIJ with hip ext and caudal mobilization Manual Techniques MET Type L ant innom rot, R post innom rot Body Position Hooklying Reps/Duration 6 x 6 Comments c/ dowel Test-retest with bridge and Reports less pressure at L SIJ in standing/ambulating following MET Neuro Re-Education Treatment Balance Activities SLS Reps/Duration 30 ea Comments maintains level pelvis; end of session Self-Care/Home Management Treatment Education Patient Education Joint Protection,Pain Management Other Education 8 min- Education provided on use of pillow for pain mgmt at posterior hips. Recommended sitting with hips higher than knees and frequent positional changes. Education also on standing position to avoid more pressure on glute with stance, no crossing legs, etc PT-OP-T Assessment and Plan Start: 10/30/24 16:07 Freq: Status: Active Protocol: Document 01/01/25 07:24 NM (Rec: 01/01/25 08:17 NM [id number]) Physical Therapy Assessment Goals Three Impairment sleeping impaired d/t pain Short Term Goal (STG) Pt will report that she is waking <50% of the time due to hip pain 12/11/24: states 40% improved since evaluation, states waking up every night but states no longer having to take medication, readjusts with more relief STG Duration 8 weeks Intermediate Goal (LTG) Pt will report that she is not waking due to hip pain 01/01/25: pt reports that she does not wake due to pain at night LTG Duration 12 weeks MET Two Impairment pain with running Short Term Goal (STG) Pt will improve global hip and knee strength to at least 4+/ 5 in order increase strength and stability during running 12/11/24: L hip abd strength still most limited and painful 4/5, rest progressing 4+/5 STG Duration 8 weeks PROGRESSING 12/11/24 De Icer Kit Assembler Goal (LTG) Pt will report that she has hip pain <3/10 with running LTG Duration 12 weeks One Impairment not performing HEP De Icer Kit Assembler Goal (LTG) Pt will be IND with HEP at least 3x/wk in order to maximize progression with PT and to transition to maintenance program following discharge 12/11/24: compliant with HEP LTG Duration 12 weeks MET Assessment Summary Assessment Pt responds well to manual tx for her SIJ especially with hip extension and caudal mobilization for SIJ. Improved symptom management secondary to MET promoting more hip extension. Followed with glute strengthening for functional retraining, progressing to hip thrusts and resisted stepping for stability during running. Maintains good form. Recommended that pt modify activities and manage symptoms for posterior hip pain with sitting. Pt continuing to progress toward goals but would benefit from further skilled PT to manage symptoms and direct strengthening/ mobility training to maximize ability to participate in recreational activities Physical Therapy Plan Frequency and Duration Frequency of Treatment 1-2x/wk Duration of treatment (weeks) 12 Plan of Care Start Date 10/31/24 Plan of Care End Date 01/25/25 Therapeutic Interventions Therapeutic Interventions Balance Training,Gait Training ,Home Exercise Program,Joint Mobilizations,Manual Therapy, Neuromuscular Re-education, Orthotic/Prosthetic Management ,Patient/Caregiver Education, Self-Care/Home Management, Sensory Integration,Soft Tissue Mobilization,Taping, Therapeutic Activities, Therapeutic Exercises Modalities Cold Pack/Ice Massage,Electric Stimulation,Hot Packs, Ultrasound Next Visit Focus/Plan Next Note Type Treatment Note Next Visit Plan SIJ mobilization harrison with extension. cont glute strengthening with emphasis on glute med mgmt Assess response to AROM vs 5# DB RDL abd TB sliders and self stretch and mobs without glute/SIJ irritation. Next: Progress hip adduction/IR strengthening. POC: hip mobilizations as needed (also w/ hip ext) STM to glute, hip flexors
--- NOTE | 2025-01-09 09:46 | PT.OTN ---
Current Diagnoses Pain in left hip (01/09/25) Stiffness of left hip, not elsewhere classified (01/09/25) Stiffness of other specified joint, not elsewhere classified (01/09/25) Other lack of coordination (01/09/25) Weakness (01/09/25) Physical Therapy Treatment Note PT-OP-A Visit Information Start: 10/30/24 16:07 Freq: Status: Active Protocol: Document 01/09/25 09:04 NM (Rec: 01/09/25 09:46 NM [id number]) Out-Patient Physical Therapy Visit Information Visit Information Visit Type Treatment Note Visit Start Time 09:07 Visit Stop Time 09:41 Visit Number 10 (4/ PN) Evaluation Information Evaluation Date 10/31/24 Precautions Precautions RA PT-OP-B Current Condition Start: 10/30/24 16:07 Freq: Status: Active Protocol: Document 10/31/24 11:35 NM (Rec: 10/31/24 12:27 NM [id number]) Current Condition History of Current Condition Onset Date chronic Current Complaints pain, weakness History of Current Condition Pt reports on-off pain for years. She reports pain in L side, inside of the bone. She reports when running, if it hard to lift leg to run, has pain in glute. She has had pain at night, wakes her up. feels deep. She has a hx of sciatic pain on L side. She sees a chiro, 1x/month helps with pain in back (mid-low back). 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 Used to have pain with sleeping on side, but now any position. Has RA, has flare ups, dx 7 years ago (on medication to manage); saw rheum 1 month ago, has follow up in a few weeks. When she starts running, worse if already irritated; feels weak. No hx of injuries to hip. hx of several ankle injuries B, L >R- limited motion L Prior Treatments and Tests August 2024 L hip xray- Impression: minimal bilateral hip osteoarthritis, greater on the left side. Current Functional Impairments (Reported) Functional Limitations- Recreation/ wt lifting 3x/wk Hobbies running 3x/wk (5-6 mi, 4 mi) > 2x/wk PT-OP-C Subjective Start: 10/31/24 16:25 Freq: Status: Active Protocol: Document 01/09/25 09:04 NM (Rec: 01/09/25 09:46 NM [id number]) OP-PT Subjective Patient Comments Patient Comments Pt reports that her sleeping is improved, both at front of hip and back of hip; has been more consistent with sleeping using pillow between her legs. Pt reports that her posterior hip is still bothering her more than the front her hip, right along the SIJ line/glute . Pt reports that the exercises make her feel better , less in the spot. Sitting in car makes her feel worse, driving to [place]. Has been sitting with knees above/same height as hips. PT-OP-D Balance Start: 10/30/24 16:07 Freq: Status: Active Protocol: Document 10/31/24 11:35 NM (Rec: 10/31/24 12:27 NM [id number]) Balance Tests Single Limb Standing Single Limb- Right 5 Single Limb- Left 5 - demos trendelenburg PT-OP-E Functional Tests Start: 10/30/24 16:07 Freq: Status: Active Protocol: Document 10/31/24 11:35 NM (Rec: 10/31/24 12:27 NM [id number]) Functional Tests Squat Test Score 10 Comments demos hip shift and rot; B knee crepitus Single Leg Squat Test Score L weakness and valgus Comment R WFL PT-OP-F Manual Assessment Start: 10/30/24 16:07 Freq: Status: Active Protocol: Document 10/31/24 11:35 NM (Rec: 10/31/24 12:27 NM [id number]) Manual Assessments Soft Tissue Assessment Soft Tissue Mobility Assessment Tightness of hip flexors, glutes Elongated hamstrings Joint Mobility Assessment Joint Mobility Assessment Decreased mobility with rotation R hip, L hip has more mobility Hypomobility of lumbar spine, thoracic spine and L SIJ, tenderness at L SIJ PT-OP-G Mobility & Gait Start: 10/30/24 16:07 Freq: Status: Active Protocol: Document 10/31/24 11:35 NM (Rec: 10/31/24 12:27 NM [id number]) OP Gait Assessment Gait Gait Assistance Required: Independent Distance (Feet) 150 Assistive Devices Assistive Device None Gait Deviations General Gait Pattern Within Normal Limits PT-OP-J Posture/Palpation/Skin Start: 10/30/24 16:07 Freq: Status: Active Protocol: Document 10/31/24 11:35 NM (Rec: 10/31/24 12:27 NM [id number]) Posture Evaluation Position Standing Head/C-Spine Posture Forward Head Shoulder Posture (L) Rounded,(R) Rounded Scapula Posture (L) Neutral,(R) Neutral Pelvis Posture Anteriorly Tilted,(R) Rotated Anterior Knee Posture (L) Genu Valgus,(R) Genu Valgus Ankle/Foot Posture (L) Pronated,(R) Pronated Comments Posture Comments Demos hypermobility in B elbows and knees Palpation Assessment Location L hip Palpation Details No tenderness at groin Tightness at hip flexors Tenderness at glute, piriformis. Trigger points noted at glutes/piriformis harrison behind greater trochanter PT-OP-K Range of Motion Start: 10/30/24 16:07 Freq: Status: Active Protocol: Document 10/31/24 11:35 NM (Rec: 10/31/24 12:27 NM [id number]) Lumbar Spine Range of Motion Lumbar Spine Active Percentage Flexion 100 Extension 100 Rotation Left 50 Rotation Right 50 Lateral Flexion Left 100 Lateral Flexion Right 100 Comments R LF pulls on L lateral; stiffness w/ rotation; R drop w/ L stance Hip Goniometric Range of Motion Hip Right Flexion w/Knee Flexed 125 Extension 10 Abduction 25 Internal Rotation 35 External Rotation 35 Left Flexion w/Knee Flexed 130 Extension 10 Abduction 20 Internal Rotation 45 External Rotation 28 Comments IR tightness, same pain PT-OP-L Special Tests Start: 10/30/24 16:07 Freq: Status: Active Protocol: Document 10/31/24 11:35 NM (Rec: 10/31/24 12:27 NM [id number]) Special Tests Lumbar Spine Special Tests Gonzales/quadrant Test Results + Comments L local, Radic to bottom Hip Special Tests Scour Test Test Results - Stinchfield Resisted Hip Flexion Test Results - Labral tests Test Results - FADIR Test Results - Comments reproduced with cross body adduction and SLR passively SAMANTHA Test Results + Comments in glute, less on L side PT-OP-M Strength Start: 10/30/24 16:07 Freq: Status: Active Protocol: Document 12/11/24 09:03 NM (Rec: 12/11/24 09:48 NM [id number]) Hip Strength Hip Manual Muscle Testing Right Flexion (L2) 4+ Good+ Extension (S1) 4 Good Abduction 4+ Good+ Adduction 4+ Good+ External Rotation 4+ Good+ Internal Rotation 4+ Good+ Left Flexion (L2) 4+ Good+ Extension (S1) 4+ Good+ Abduction 4 Good Adduction 4+ Good+ External Rotation 4 Good Internal Rotation 4 Good Comments pain with abduction resisted 12/11/23: still pain with hip abd but 4/5 Knee Strength Knee Manual Muscle Testing Right Flexion (S2) 4+ Good+ Extension (L3) 4+ Good+ Left Flexion (S2) 4+ Good+ Extension (L3) 4+ Good+ Comments pain with HS, reproduced in glute 12/11/24: 4+ for both, pain in hip w/ knee ext PT-OP-Q Treatments Start: 10/30/24 16:07 Freq: Status: Active Protocol: Document 01/09/25 09:04 NM (Rec: 01/09/25 09:46 NM [id number]) Therapeutic Exercises Standing Exercises hip abduction Side bilateral Equipment Used hand support for balance Reps/Minutes 10 ea hip hike Side left Equipment Used hands on hips Reps/Minutes 20 ea Other Exercises self hip mobility Other Exercise Name 1. inf glide, 2. ant glide ( HEP) Side left Resistance level 5 band Equipment Used supine and 1/2 kneel Reps/Minutes 60 ea Comments cued set up self soft tissue mobilization Other Exercise Name piriformis, OI Side left Equipment Used racquetball, mat on floor Reps/Minutes 30 ea Manual Therapy Treatment Consent Patient gave verbal consent for manual Yes treatment Soft Tissue Mobilization L hip Body Location hip ER, glutes Mobilization Type Rolling,Sustained Pressure, Other Intensity/Depth Moderate Comments Sidelying and prone Joint Mobilizations L hip Joint L hip, L SIJ Direction ant, post caudal Grade III Reps/Duration 2x30 ea Comments sidelying and supine PT-OP-T Assessment and Plan Start: 10/30/24 16:07 Freq: Status: Active Protocol: Document 01/09/25 09:04 NM (Rec: 01/09/25 09:46 NM [id number]) Physical Therapy Assessment Goals Three Impairment sleeping impaired d/t pain Short Term Goal (STG) Pt will report that she is waking <50% of the time due to hip pain 12/11/24: states 40% improved since evaluation, states waking up every night but states no longer having to take medication, readjusts with more relief STG Duration 8 weeks 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 Goal (LTG) Pt will report that she is not waking due to hip pain 01/01/25: pt reports that she does not wake due to pain at night LTG Duration 12 weeks MET Two Impairment pain with running Short Term Goal (STG) Pt will improve global hip and knee strength to at least 4+/ 5 in order increase strength and stability during running 12/11/24: L hip abd strength still most limited and painful /, rest progressing 4+/5 STG Duration 8 weeks PROGRESSING 12/11/24 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 Improved with self mobilizatio , manual treatment. Best response to hip extension mobilization with movement and hip mobilizations; trialed self glide with band for carryover at home. Pt forgot handout in clinic so no handout for HEP. Continued with glute medius stabilization and activation via hip hike and hip abduction . Will progress to greater SIJ stabilization/glute activation in future. Pt would continue to benefit from skilled PT for progressive strengthening and mobilization to improve symptom management for exercise and to decrease pain. Physical Therapy Plan Frequency and Duration Frequency of Treatment 1-2x/wk Duration of treatment (weeks) 12 Plan of Care Start Date 10/31/24 Plan of Care End Date 01/25/25 Therapeutic Interventions Therapeutic Interventions Balance Training,Gait Training ,Home Exercise Program,Joint Mobilizations,Manual Therapy, Neuromuscular Re-education, Orthotic/Prosthetic Management ,Patient/Caregiver Education, Self-Care/Home Management, Sensory Integration,Soft Tissue Mobilization,Taping, Therapeutic Activities, Therapeutic Exercises Modalities Cold Pack/Ice Massage,Electric Stimulation,Hot Packs, Ultrasound Next Visit Focus/Plan Next Note Type Progress Note Next Visit Plan SIJ mobilization harrison with extension. cont glute strengthening with emphasis on glute med mgmt - hip abd, add wt for resistance, 1/2 plank abd. Assess RDL. Next: Progress hip adduction/IR strengthening. POC: hip mobilizations as needed (also w/ hip ext) STM to glute, hip flexors
--- NOTE | 2025-01-22 10:36 | PT.OTN ---
Current Diagnoses Pain in left hip (01/22/25) Stiffness of left hip, not elsewhere classified (01/22/25) Stiffness of other specified joint, not elsewhere classified (01/22/25) Other lack of coordination (01/22/25) Weakness (01/22/25) Physical Therapy Treatment Note PT-OP-A Visit Information Start: 10/30/24 16:07 Freq: Status: Active Protocol: Document 01/22/25 08:18 NM (Rec: 01/22/25 09:07 NM [id number]) Out-Patient Physical Therapy Visit Information Visit Information Visit Type Progress Note Visit Start Time 08:30 Visit Stop Time 09:00 Visit Number 11 (12/07 PN) Evaluation Information Evaluation Date 10/31/24 Precautions Precautions RA PT-OP-B Current Condition Start: 10/30/24 16:07 Freq: Status: Active Protocol: Document 10/31/24 11:35 NM (Rec: 10/31/24 12:27 NM [id number]) Current Condition History of Current Condition Onset Date chronic Current Complaints pain, weakness History of Current Condition Pt reports on-off pain for years. She reports pain in L side, inside of the bone. She reports when running, if it hard to lift leg to run, has pain in glute. She has had pain at night, wakes her up. feels deep. She has a hx of sciatic pain on L side. She sees a chiro, 1x/month helps with pain in back (mid-low back). 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 Used to have pain with sleeping on side, but now any position. Has RA, has flare ups, dx 7 years ago (on medication to manage); saw rheum 1 month ago, has follow up in a few weeks. When she starts running, worse if already irritated; feels weak. No hx of injuries to hip. hx of several ankle injuries B, L >R- limited motion L Prior Treatments and Tests August 2024 L hip xray- Impression: minimal bilateral hip osteoarthritis, greater on the left side. Current Functional Impairments (Reported) Functional Limitations- Recreation/ wt lifting 3x/wk Hobbies running 3x/wk (5-6 mi, 4 mi) > 2x/wk PT-OP-C Subjective Start: 10/31/24 16:25 Freq: Status: Active Protocol: Document 01/22/25 08:18 NM (Rec: 01/22/25 09:07 NM [id number]) OP-PT Subjective Patient Comments Patient Comments Pt continues to report pain in the back of her glute. Cannot get to resolve. Reports always present as a nagging pain, feels more when sitting a lot (has to shift weight to offload). Does not wake her up when she sleeps, but does feel at night. Never a sharp pain with activity. Reports massage on tuesday, felt good but states tuesday that she felt poorly as started to do ADLs. Pt has hx of L ankle injuries, wondering if alignment off. Never goes away . PT-OP-D Balance Start: 10/30/24 16:07 Freq: Status: Active Protocol: Document 10/31/24 11:35 NM (Rec: 10/31/24 12:27 NM [id number]) Balance Tests Single Limb Standing Single Limb- Right 5 Single Limb- Left 5 - demos trendelenburg PT-OP-E Functional Tests Start: 10/30/24 16:07 Freq: Status: Active Protocol: Document 10/31/24 11:35 NM (Rec: 10/31/24 12:27 NM [id number]) Functional Tests Squat Test Score 10 Comments demos hip shift and rot; B knee crepitus Single Leg Squat Test Score L weakness and valgus Comment R WFL PT-OP-F Manual Assessment Start: 10/30/24 16:07 Freq: Status: Active Protocol: Document 10/31/24 11:35 NM (Rec: 10/31/24 12:27 NM [id number]) Manual Assessments Soft Tissue Assessment Soft Tissue Mobility Assessment Tightness of hip flexors, glutes Elongated hamstrings Joint Mobility Assessment Joint Mobility Assessment Decreased mobility with rotation R hip, L hip has more mobility Hypomobility of lumbar spine, thoracic spine and L SIJ, tenderness at L SIJ PT-OP-G Mobility & Gait Start: 10/30/24 16:07 Freq: Status: Active Protocol: Document 10/31/24 11:35 NM (Rec: 10/31/24 12:27 NM [id number]) OP Gait Assessment Gait Gait Assistance Required: Independent Distance (Feet) 150 Assistive Devices Assistive Device None Gait Deviations General Gait Pattern Within Normal Limits PT-OP-J Posture/Palpation/Skin Start: 12/03/24 16:07 Freq: Status: Active Protocol: Document 10/31/24 11:35 NM (Rec: 10/31/24 12:27 NM [id number]) Posture Evaluation Position Standing Head/C-Spine Posture Forward Head Shoulder Posture (L) Rounded,(R) Rounded Scapula Posture (L) Neutral,(R) Neutral Pelvis Posture Anteriorly Tilted,(R) Rotated Anterior Knee Posture (L) Genu Valgus,(R) Genu Valgus Ankle/Foot Posture (L) Pronated,(R) Pronated Comments Posture Comments Demos hypermobility in B elbows and knees Palpation Assessment Location L hip Palpation Details No tenderness at groin Tightness at hip flexors Tenderness at glute, piriformis. Trigger points noted at glutes/piriformis harrison behind greater trochanter PT-OP-K Range of Motion Start: 10/30/24 16:07 Freq: Status: Active Protocol: Document 01/22/25 08:18 NM (Rec: 01/22/25 09:07 NM [id number]) Hip Goniometric Range of Motion Hip Right Flexion w/Knee Flexed 125 Extension 10 Abduction 25 Internal Rotation 35 External Rotation 35 Left Flexion w/Knee Flexed 130 Extension 10 Abduction 20 Internal Rotation 45 External Rotation 28 Comments IR tightness, same pain PT-OP-L Special Tests Start: 10/30/24 16:07 Freq: Status: Active Protocol: Document 10/31/24 11:35 NM (Rec: 10/31/24 12:27 NM [id number]) Special Tests Lumbar Spine Special Tests Gonzales/quadrant Test Results + Comments L local, Radic to bottom Hip Special Tests Scour Test Test Results - Stinchfield Resisted Hip Flexion Test Results - Labral tests Test Results - FADIR Test Results - Comments reproduced with cross body adduction and SLR passively SAMANTHA Test Results + Comments in glute, less on L side PT-OP-M Strength Start: 10/30/24 16:07 Freq: Status: Active Protocol: Document 01/22/25 08:18 NM (Rec: 01/22/25 09:07 NM [id number]) Hip Strength Hip Manual Muscle Testing Right Flexion (L2) 4+ Good+ Extension (S1) 4 Good Abduction 4+ Good+ Adduction 4+ Good+ External Rotation 4+ Good+ Internal Rotation 4+ Good+ Left Flexion (L2) 4+ Good+ Extension (S1) 4+ Good+ Abduction 4 Good Adduction 4+ Good+ External Rotation 4 Good Internal Rotation 4+ Good+ Comments pain with abduction resisted 12/11/23: still pain with hip abd but 4/5 01/22/25: 4/5 MMT and pain in buttock c/ abduction and ER PT-OP-Q Treatments Start: 10/30/24 16:07 Freq: Status: Active Protocol: Document 01/22/25 08:18 NM (Rec: 01/22/25 09:07 NM [id number]) Therapeutic Exercises Supine Exercises hip IR Supine Exercise Name HEP Side left Resistance 1. AROM, 2. c/ level 1 band ( anchored at opp foot) Reps/Minutes 10 ea Comments post manual tx, no pain, reports reduction in pain Standing Exercises glute medius isometric Standing Exercise Name HEP Side bilateral Equipment Used kickball at wall for thigh Reps/Minutes 2x30 ea Comments reports pain reduction standing clam Standing Exercise Name HEP -isometric hold (foot on wall behind pt) Side bilateral Resistance level 2 band at thighs Reps/Minutes 4x30 Comments reports pain reduction Manual Therapy Treatment Consent Patient gave verbal consent for manual Yes treatment Soft Tissue Mobilization L hip Body Location hip ER, glutes Mobilization Type Rolling,Sustained Pressure, Other Intensity/Depth Deep Body Position Prone Comments Glutes first, tender and reduced with manual treatment then followed by MWM hip ER/IR Joint Mobilizations L hip Joint L SIJ Direction caudal Grade III Body Position Prone Reps/Duration 10x10 Manual Techniques PNF Type alternating isometrics Body Location L hip ER> IR>ER Body Position Prone Reps/Duration 5-6 sets x 3-5 hold Comments Increasing ROM with ea set. Pt reports significant reduction in pain with mobilization. PT providing stabilization at SIJ Followed by functional movement AROM Added to HEP via video for home carryover. Pt lying in prone on mat next to wall, push into opposite foot then wall then foot again. Educated for pain free pushing and to adjust position thus adjusting ROM Self-Care/Home Management Treatment Education Patient Education Joint Protection,Pain Management,Posture Other Education Recommended use of pillow under bottom in car for comfort and to slightly raise hips above knees, in addition to possible use for home office. Recommended that pt take frequent standing or movement breaks rather than sustained sitting PT-OP-T Assessment and Plan Start: 10/30/24 16:07 Freq: Status: Active Protocol: Document 01/22/25 08:18 NM (Rec: 01/22/25 09:07 NM [id number]) Physical Therapy Assessment Goals Four Impairment pain with sitting; LEFS 72/80 Short Term Goal (STG) Pt will be educated on sitting ergonomics and postural/ activity modifications for pain management STG Duration 02/22/25 (4 weeks) Care Home Goal (LTG) Pt will report that she is able to sit in office chair at least 1 hour without increased pain in her L glute/ posterior 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 LTG Duration 03/08/25 (6 weeks) Three Impairment sleeping impaired d/t pain Short Term Goal (STG) Pt will report that she is waking <50% of the time due to hip pain 12/11/24: states 40% improved since evaluation, states waking up every night but states no longer having to take medication, readjusts with more relief STG Duration 8 weeks Care Home Goal (LTG) Pt will report that she is not waking due to hip pain 01/01/25: pt reports that she does not wake due to pain at night LTG Duration 12 weeks MET Two Impairment pain with running Short Term Goal (STG) Pt will improve global hip and knee strength to at least 4+/ 5 in order increase strength and stability during running 12/11/24: L hip abd strength still most limited and painful 4/5, rest progressing 4+/5 01/22/25: L hip abd and ER strength 4/5, pain STG Duration 8 weeks PROGRESSING 12/11/24 Clinical Faculty Goal (LTG) Pt will report that she has hip pain <3/10 with running 01/22/25: pt reports 3-4/10 pain with running LTG Duration 12 weeks PARTIALLY MET; updated on 01/22/25 for 6 weeks 03/08/25 One Impairment not performing HEP Clinical Faculty Goal (LTG) Pt will be IND with HEP at least 3x/wk in order to maximize progression with PT and to transition to maintenance program following discharge 12/11/24: compliant with HEP LTG Duration 12 weeks MET Progress Towards Goals Progress Comments Met 2/3 goals. Added 4th goal Assessment Summary Assessment Decreased time as pt >15 min late to session. Pt reports reduction in pain following manual therapy and alternating isometrics into hip ER and IR , reduction from 4-5/10 to 1/ 10. Added to HEP via video for pt to implement at home. Observable improvements in hip rotation mobility and pelvic/ SIJ position following manual treatment but did not re- measure due to time. Followed with functional movement retraining into hip IR and with glute medius and piriformis isometrics at wall. Pt challenged by activities and feels appropriate activation in muscles but does not have pain with activities . Most challenging on glute medius with pelvic stabilization in single leg stance. PT provided education expectations and recommendations to adjust sitting position for car and desk for pt comfort, including adjusting hip position above knees with use of pillow and frequent breaks for comfort. Physical Therapy Plan Frequency and Duration Frequency of Treatment 1x/Week Duration of treatment (weeks) 6 Plan of Care Start Date 01/22/25 Plan of Care End Date 03/08/25 Therapeutic Interventions Therapeutic Interventions Balance Training,Gait Training ,Home Exercise Program,Joint Mobilizations,Manual Therapy, Neuromuscular Re-education, Orthotic/Prosthetic Management ,Patient/Caregiver Education, Self-Care/Home Management, Sensory Integration,Soft Tissue Mobilization,Taping, Therapeutic Activities, Therapeutic Exercises Modalities Cold Pack/Ice Massage,Electric Stimulation,Hot Packs, Ultrasound Next Visit Focus/Plan Next Note Type Treatment Note Next Visit Plan SIJ mobility with ER/IR, ext. Assess need for PNF techniques and functional movement retraining for hip IR/ER, abd/ add, and hip flex/ext- may need MWM for glute max and min , piriformis. Assess tolerance for wall isometrics glute med and piriformis. Cont glute strengthening with emphasis on glute med mgmt - hip abd, add wt for resistance, 1/2 plank abd. Next: Progress hip adduction/IR and ER strengthening. hip mobilizations as needed ( also w/ hip ext); STM to gluteals
--- NOTE | 2025-01-22 10:37 | PT.OPPOC ---
Physical, Occupational & Speech Therapy At Current Diagnoses Pain in left hip (01/22/25) Stiffness of left hip, not elsewhere classified (01/22/25) Stiffness of other specified joint, not elsewhere classified (01/22/25) Other lack of coordination (01/22/25) Weakness (01/22/25) Visit Care Team Role Provider Type Reji Hall MD Attending Provider Physician Family Provider Primary Care Provider Referring Provider Specialty: Family Practice Address: [address] [place] [address], [facility] Email: [email or web address] Plan Of Care PT-OP-B Current Condition Start: 10/30/24 16:07 Freq: Status: Active Protocol: Document 10/31/24 11:35 NM (Rec: 10/31/24 12:27 NM [id number]) Current Condition History of Current Condition Onset Date chronic Current Complaints pain, weakness History of Current Condition Pt reports on-off pain for years. She reports pain in L side, inside of the bone. She reports when running, if it hard to lift leg to run, has pain in glute. She has had pain at night, wakes her up. feels deep. She has a hx of sciatic pain on L side. She sees a chiro, 1x/month helps with pain in back (mid-low back). 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 Used to have pain with sleeping on side, but now any position. Has RA, has flare ups, dx 7 years ago (on medication to manage); saw rheum 1 month ago, has follow up in a few weeks. When she starts running, worse if already irritated; feels weak. No hx of injuries to hip. hx of several ankle injuries B, L >R- limited motion L Prior Treatments and Tests August 2024 L hip xray- Impression: minimal bilateral hip osteoarthritis, greater on the left side. Current Functional Impairments (Reported) Functional Limitations- Recreation/ wt lifting 3x/wk Hobbies running 3x/wk (5-6 mi, 4 mi) > 2x/wk PT-OP-T Assessment and Plan Start: 10/30/24 16:07 Freq: Status: Active Protocol: Document 01/22/25 08:18 NM (Rec: 01/22/25 09:07 NM [id number]) Physical Therapy Assessment Goals Four Impairment pain with sitting; LEFS 72/80 Short Term Goal (STG) Pt will be educated on sitting ergonomics and postural/ activity modifications for pain management STG Duration 02/22/25 (4 weeks) Penitentiary Goal (LTG) Pt will report that she is able to sit in office chair at least 1 hour without increased pain in her L glute/ posterior 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 LTG Duration 03/08/25 (6 weeks) Three Impairment sleeping impaired d/t pain Short Term Goal (STG) Pt will report that she is waking <50% of the time due to hip pain 12/11/24: states 40% improved since evaluation, states waking up every night but states no longer having to take medication, readjusts with more relief STG Duration 8 weeks 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 Extinguisher 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 Inspector Goal (LTG) Pt will report that she is not waking due to hip pain 01/01/25: pt reports that she does not wake due to pain at night LTG Duration 12 weeks MET Two Impairment pain with running Short Term Goal (STG) Pt will improve global hip and knee strength to at least 4+/ 5 in order increase strength and stability during running 12/11/24: L hip abd strength still most limited and painful 4/5, rest progressing 4+/5 01/22/25: L hip abd and ER strength 4/5, pain STG Duration 8 weeks PROGRESSING 12/11/24 Penitentiary Goal (LTG) Pt will report that she has hip pain <3/10 with running 01/22/25: pt reports 3-4/10 pain with running LTG Duration 12 weeks PARTIALLY MET; updated on 01/22/25 for 6 weeks 03/08/25 One Impairment not performing HEP Fire Extinguisher Sprinkler Inspector Goal (LTG) Pt will be IND with HEP at least 3x/wk in order to maximize progression with PT and to transition to maintenance program following discharge 12/11/24: compliant with HEP LTG Duration 12 weeks MET Progress Towards Goals Progress Comments Met 2/3 goals. Added 4th goal Assessment Summary Assessment Pt has been seen x10 visits following evaluation in October 2024 for L hip pain and back pain. Pt's anterior hip pain has cleared; however, continues to have posterior L hip pain. Demos improvements in B hip ROM and strength. Has pain with resisted L hip abduction and ER. Compliant with HEP. Met 2 out of 3 LTGs, but addred 4th goal as pt would still benefit from skilled PT for manual therapy and progressive strengthening. Limited visits due to pt schedule from work, travel, and insurance; pt electing to attend PT every other week vs weekly as per PT recommendation in order to focus more on posterior hip pain. PT also recommending that pt seek further evaluation from specialist should no change in symptoms occur or if symptoms should worsen. Pt verbalizes understanding. Physical Therapy Plan Frequency and Duration Frequency of Treatment 1x/Week Duration of treatment (weeks) 6 Plan of Care Start Date 01/22/25 Plan of Care End Date 03/08/25 Therapeutic Interventions Therapeutic Interventions Balance Training,Gait Training ,Home Exercise Program,Joint Mobilizations,Manual Therapy, Neuromuscular Re-education, Orthotic/Prosthetic Management ,Patient/Caregiver Education, Self-Care/Home Management, Sensory Integration,Soft Tissue Mobilization,Taping, Therapeutic Activities, Therapeutic Exercises Modalities Cold Pack/Ice Massage,Electric Stimulation,Hot Packs, Ultrasound Next Visit Focus/Plan Next Note Type Treatment Note Next Visit Plan SIJ mobility with ER/IR, ext. Assess need for PNF techniques and functional movement retraining for hip IR/ER, abd/ add, and hip flex/ext- may need MWM for glute max and min , piriformis. Assess tolerance for wall isometrics glute med and piriformis. Cont glute strengthening with emphasis on glute med mgmt - hip abd, add wt for resistance, 1/2 plank abd. Next: Progress hip adduction/IR and ER strengthening. hip mobilizations as needed ( also w/ hip ext); STM to gluteals Plan of Care Dates Plan of Care Start Date 01/22/25 Plan of Care End Date 03/08/25 Electronically Signed by: Sindhu Jacob, PT 01/22/25 1037 If you are in agreement with this Plan of Care, please return a signed and dated copy. I have reviewed this Plan of Care and certify that the skilled therapy services above are required to meet the patient?s needs. Physician Signature Date Printed Name and Credentials Clinical Instructor Signature Printed Name and Credentials
--- NOTE | 2025-02-21 11:15 | PT.OTN ---
Current Diagnoses Pain in left hip (02/21/25) Stiffness of left hip, not elsewhere classified (02/21/25) Stiffness of other specified joint, not elsewhere classified (02/21/25) Other lack of coordination (02/21/25) Weakness (02/21/25) Physical Therapy Treatment Note PT-OP-A Visit Information Start: 10/30/24 16:07 Freq: Status: Active Protocol: Document 02/21/25 11:06 [facility] (Rec: 02/21/25 11:14 [facility] [id number]) Out-Patient Physical Therapy Visit Information Visit Information Visit Type Progress Note Visit Start Time 08:15 Visit Stop Time 09:00 Visit Number 12 01/07 PN PT-OP-B Current Condition Start: 10/30/24 16:07 Freq: Status: Active Protocol: Document 10/31/24 11:35 NM (Rec: 10/31/24 12:27 NM [id number]) Current Condition History of Current Condition Onset Date chronic Current Complaints pain, weakness History of Current Condition Pt reports on-off pain for years. She reports pain in L side, inside of the bone. She reports when running, if it hard to lift leg to run, has pain in glute. She has had pain at night, wakes her up. feels deep. She has a hx of sciatic pain on L side. She sees a chiro, 1x/month helps with pain in back (mid-low back). 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 Used to have pain with sleeping on side, but now any position. Has RA, has flare ups, dx 7 years ago (on medication to manage); saw rheum 1 month ago, has follow up in a few weeks. When she starts running, worse if already irritated; feels weak. No hx of injuries to hip. hx of several ankle injuries B, L >R- limited motion L Prior Treatments and Tests August 2024 L hip xray- Impression: minimal bilateral hip osteoarthritis, greater on the left side. Current Functional Impairments (Reported) Functional Limitations- Recreation/ wt lifting 3x/wk Hobbies running 3x/wk (5-6 mi, 4 mi) > 2x/wk PT-OP-C Subjective Start: 10/31/24 16:25 Freq: Status: Active Protocol: Document 02/21/25 08:16 [facility] (Rec: 02/21/25 09:09 [facility] [id number]) OP-PT Subjective Patient Comments Patient Comments pt notes she hasn't stopped running she feels that her hip is better since she started pT and she doesn't have the pain in the front but there is still bad days and still days where she doesn't have pain she is running 2 days per week and weight training 3 days per week. She has pain but a low level when she runs and sometimes it gets better. SHe gets pain in the deep lateral and posterior hip on the left side. pt notes the manual work with the strap does help and she will get a day of relief PT-OP-D Balance Start: 10/30/24 16:07 Freq: Status: Active Protocol: Document 10/31/24 11:35 NM (Rec: 10/31/24 12:27 NM [id number]) Balance Tests Single Limb Standing Single Limb- Right 5 Single Limb- Left 5 - demos trendelenburg PT-OP-E Functional Tests Start: 10/30/24 16:07 Freq: Status: Active Protocol: Document 10/31/24 11:35 NM (Rec: 10/31/24 12:27 NM [id number]) Functional Tests Squat Test Score 10 Comments demos hip shift and rot; B knee crepitus Single Leg Squat Test Score L weakness and valgus Comment R WFL PT-OP-F Manual Assessment Start: 10/30/24 16:07 Freq: Status: Active Protocol: Document 10/31/24 11:35 NM (Rec: 10/31/24 12:27 NM [id number]) Manual Assessments Soft Tissue Assessment Soft Tissue Mobility Assessment Tightness of hip flexors, glutes Elongated hamstrings Joint Mobility Assessment Joint Mobility Assessment Decreased mobility with rotation R hip, L hip has more mobility Hypomobility of lumbar spine, thoracic spine and L SIJ, tenderness at L SIJ PT-OP-G Mobility & Gait Start: 10/30/24 16:07 Freq: Status: Active Protocol: Document 10/31/24 11:35 NM (Rec: 10/31/24 12:27 NM [id number]) OP Gait Assessment Gait Gait Assistance Required: Independent Distance (Feet) 150 Assistive Devices Assistive Device None Gait Deviations General Gait Pattern Within Normal Limits PT-OP-J Posture/Palpation/Skin Start: 10/30/24 16:07 Freq: Status: Active Protocol: Document 10/31/24 11:35 NM (Rec: 10/31/24 12:27 NM [id number]) Posture Evaluation Position Standing Head/C-Spine Posture Forward Head Shoulder Posture (L) Rounded,(R) Rounded Scapula Posture (L) Neutral,(R) Neutral Pelvis Posture Anteriorly Tilted,(R) Rotated Anterior Knee Posture (L) Genu Valgus,(R) Genu Valgus Ankle/Foot Posture (L) Pronated,(R) Pronated Comments Posture Comments Demos hypermobility in B elbows and knees Palpation Assessment Location L hip Palpation Details No tenderness at groin Tightness at hip flexors Tenderness at glute, piriformis. Trigger points noted at glutes/piriformis harrison behind greater trochanter PT-OP-K Range of Motion Start: 10/30/24 16:07 Freq: Status: Active Protocol: Document 01/22/25 08:18 NM (Rec: 01/22/25 09:07 NM [id number]) Hip Goniometric Range of Motion Hip Right Flexion w/Knee Flexed 125 Extension 10 Abduction 25 Internal Rotation 35 External Rotation 35 Left Flexion w/Knee Flexed 130 Extension 10 Abduction 20 Internal Rotation 45 External Rotation 28 Comments IR tightness, same pain PT-OP-L Special Tests Start: 10/30/24 16:07 Freq: Status: Active Protocol: Document 10/31/24 11:35 NM (Rec: 10/31/24 12:27 NM [id number]) Special Tests Lumbar Spine Special Tests Gonzales/quadrant Test Results + Comments L local, Radic to bottom Hip Special Tests Scour Test [facility] Resisted Hip Flexion Test Results - Labral tests Test Results - FADIR Test Results - Comments reproduced with cross body adduction and SLR passively SAMANTHA Test Results + Comments in glute, less on L side PT-OP-M Strength Start: 10/30/24 16:07 Freq: Status: Active Protocol: Document 01/22/25 08:18 NM (Rec: 01/22/25 09:07 NM [id number]) Hip Strength Hip Manual Muscle Testing Right Flexion (L2) 4+ Good+ Extension (S1) 4 Good Abduction 4+ Good+ Adduction 4+ Good+ External Rotation 4+ Good+ Internal Rotation 4+ Good+ Left Flexion (L2) 4+ Good+ Extension (S1) 4+ Good+ Abduction 4 Good Adduction 4+ Good+ External Rotation 4 Good Internal Rotation 4+ Good+ Comments pain with abduction resisted 12/11/23: still pain with hip abd but 4/5 01/22/25: 4/5 MMT and pain in buttock c/ abduction and ER PT-OP-Q Treatments Start: 10/30/24 16:07 Freq: Status: Active Protocol: Document 02/21/25 11:06 [facility] (Rec: 02/21/25 11:14 [facility] [id number]) Therapeutic Exercises Supine Exercises ITB stretch Supine Exercise Name using strap pull up into hamstring stretch then across her body Reps/Minutes hold 1-2 min Other Exercises self hip mobility Other Exercise Name worked in quadruped position today to work on self inf/post glide Side left Comments worked from center and then at [facility] to mobilize hip self soft tissue mobilization Other Exercise Name review of piriformis with OI with miracle ball Side left Equipment Used miracle ball on floor Reps/Minutes 1-2 min Manual Therapy Treatment Soft Tissue Mobilization L hip Body Location deep gluteal attachments to the sacrum Mobilization Type Myofascial Release Intensity/Depth Deep Body Position Prone Comments deep gluteal attachments to the sacrum, work on hip IR/ER with pin and stretch Joint Mobilizations L hip Joint Left hip Comments posterior hip capsule mobilizations with the belt MWM hip IR all in supine PT-OP-T Assessment and Plan Start: 10/30/24 16:07 Freq: Status: Active Protocol: Document 02/21/25 11:06 [facility] (Rec: 02/21/25 11:14 [facility] [id number]) Physical Therapy Assessment Goals Four Impairment pain with sitting; LEFS 72/80 Short Term Goal (STG) Pt will be educated on sitting ergonomics and postural/ activity modifications for pain management STG Duration 02/22/25 (4 weeks) Factory 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 Goal (LTG) Pt will report that she is able to sit in office chair at least 1 hour without increased pain in her L glute/ posterior 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 LTG Duration 03/08/25 (6 weeks) Three Impairment sleeping impaired d/t pain Short Term Goal (STG) Pt will report that she is waking <50% of the time due to hip pain 12/11/24: states 40% improved since evaluation, states waking up every night but states no longer having to take medication, readjusts with more relief STG Duration 8 weeks Factory Manager Goal (LTG) Pt will report that she is not waking due to hip pain 01/01/25: pt reports that she does not wake due to pain at night LTG Duration 12 weeks MET Two Impairment pain with running Short Term Goal (STG) Pt will improve global hip and knee strength to at least 4+/ 5 in order increase strength and stability during running 12/11/24: L hip abd strength still most limited and painful 4/5, rest progressing 4+/5 01/22/25: L hip abd and ER strength 4/5, pain STG Duration 8 weeks PROGRESSING 12/11/24 Senior Living Goal (LTG) Pt will report that she has hip pain <3/10 with running 01/22/25: pt reports 3-4/10 pain with running LTG Duration 12 weeks PARTIALLY MET; updated on 01/22/25 for 6 weeks 03/08/25 One Impairment not performing HEP Factory Manager Goal (LTG) Pt will be IND with HEP at least 3x/wk in order to maximize progression with PT and to transition to maintenance program following discharge 12/11/24: compliant with HEP LTG Duration 12 weeks MET Assessment Summary Assessment Lidia has only been seen x 2 visits since the last plan of care since she has been out of town. I am updating her plan to extend her dates in her plan of care. She is doing better overall with her strength of the left hip but is still guarded and tight in the deep posterior gluteal attachments to the sacrum and in the TFL muscle on the left. Today we focused on ITB stretching on the left and posterior hip capsule mobilizations and gluteal MFR. Lidia was shown a self hip capsule mobilization to work on the posterior glides at home. She tolerated this well. SHe may benefit from more MFR over the deep gluteals and would benefit from continued PT Physical Therapy Plan Frequency and Duration Frequency of Treatment 1x/Week Duration of treatment (weeks) 8 Plan of Care Start Date 02/21/25 Plan of Care End Date 04/18/25 Therapeutic Interventions Therapeutic Interventions Balance Training,Gait Training ,Home Exercise Program,Joint Mobilizations,Manual Therapy, Neuromuscular Re-education, Orthotic/Prosthetic Management ,Patient/Caregiver Education, Self-Care/Home Management, Sensory Integration,Soft Tissue Mobilization,Taping, Therapeutic Activities, Therapeutic Exercises Modalities Cold Pack/Ice Massage,Electric Stimulation,Hot Packs, Ultrasound Next Visit Focus/Plan Next Note Type Treatment Note Next Visit Plan review ITB stretch, self hip capsule mobilizations, manual hip capsule mobilizations and MFR work over the left gluteals and sacral region
--- NOTE | 2025-03-13 13:11 | PT.OTN ---
Current Diagnoses Pain in left hip (03/13/25) Stiffness of left hip, not elsewhere classified (03/13/25) Stiffness of other specified joint, not elsewhere classified (03/13/25) Other lack of coordination (03/13/25) Weakness (03/13/25) Physical Therapy Treatment Note PT-OP-A Visit Information Start: 10/30/24 16:07 Freq: Status: Active Protocol: Document 03/13/25 09:12 [facility] (Rec: 03/13/25 09:14 [facility] [id number]) Out-Patient Physical Therapy Visit Information Visit Information Visit Type Treatment Note Visit Start Time 09:05 Visit Stop Time 09:55 Visit Number 13 02/04 PT-OP-B Current Condition Start: 10/30/24 16:07 Freq: Status: Active Protocol: Document 10/31/24 11:35 NM (Rec: 10/31/24 12:27 NM [id number]) Current Condition History of Current Condition Onset Date chronic Current Complaints pain, weakness History of Current Condition Pt reports on-off pain for years. She reports pain in L side, inside of the bone. She reports when running, if it hard to lift leg to run, has pain in glute. She has had pain at night, wakes her up. feels deep. She has a hx of sciatic pain on L side. She sees a chiro, 1x/month helps with pain in back (mid-low back). 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 Used to have pain with sleeping on side, but now any position. Has RA, has flare ups, dx 7 years ago (on medication to manage); saw rheum 1 month ago, has follow up in a few weeks. When she starts running, worse if already irritated; feels weak. No hx of injuries to hip. hx of several ankle injuries B, L >R- limited motion L Prior Treatments and Tests August 2024 L hip xray- Impression: minimal bilateral hip osteoarthritis, greater on the left side. Current Functional Impairments (Reported) Functional Limitations- Recreation/ wt lifting 3x/wk Hobbies running 3x/wk (5-6 mi, 4 mi) > 2x/wk PT-OP-C Subjective Start: 10/31/24 16:25 Freq: Status: Active Protocol: Document 03/13/25 09:12 [facility] (Rec: 03/13/25 09:14 [facility] [id number]) OP-PT Subjective Patient Comments Patient Comments lidia notes that she stopped running x 10 days and she does not not any difference in her pain, she has been having lateral pain at night too on the left lateral pelvic crest region PT-OP-D Balance Start: 10/30/24 16:07 Freq: Status: Active Protocol: Document 10/31/24 11:35 NM (Rec: 10/31/24 12:27 NM [id number]) Balance Tests Single Limb Standing Single Limb- Right 5 Single Limb- Left 5 - demos trendelenburg PT-OP-E Functional Tests Start: 10/30/24 16:07 Freq: Status: Active Protocol: Document 10/31/24 11:35 NM (Rec: 10/31/24 12:27 NM [id number]) Functional Tests Squat Test Score 10 Comments demos hip shift and rot; B knee crepitus Single Leg Squat Test Score L weakness and valgus Comment R WFL PT-OP-F Manual Assessment Start: 10/30/24 16:07 Freq: Status: Active Protocol: Document 10/31/24 11:35 NM (Rec: 10/31/24 12:27 NM [id number]) Manual Assessments Soft Tissue Assessment Soft Tissue Mobility Assessment Tightness of hip flexors, glutes Elongated hamstrings Joint Mobility Assessment Joint Mobility Assessment Decreased mobility with rotation R hip, L hip has more mobility Hypomobility of lumbar spine, thoracic spine and L SIJ, tenderness at L SIJ PT-OP-G Mobility & Gait Start: 10/30/24 16:07 Freq: Status: Active Protocol: Document 10/31/24 11:35 NM (Rec: 10/31/24 12:27 NM [id number]) OP Gait Assessment Gait Gait Assistance Required: Independent Distance (Feet) 150 Assistive Devices Assistive Device None Gait Deviations General Gait Pattern Within Normal Limits PT-OP-J Posture/Palpation/Skin Start: 10/30/24 16:07 Freq: Status: Active Protocol: Document 10/31/24 11:35 NM (Rec: 10/31/24 12:27 NM [id number]) Posture Evaluation Position Standing Head/C-Spine Posture Forward Head Shoulder Posture (L) Rounded,(R) Rounded Scapula Posture (L) Neutral,(R) Neutral Pelvis Posture Anteriorly Tilted,(R) Rotated Anterior Knee Posture (L) Genu Valgus,(R) Genu Valgus Ankle/Foot Posture (L) Pronated,(R) Pronated Comments Posture Comments Demos hypermobility in B elbows and knees Palpation Assessment Location L hip Palpation Details No tenderness at groin Tightness at hip flexors Tenderness at glute, piriformis. Trigger points noted at glutes/piriformis harrison behind greater trochanter PT-OP-K Range of Motion Start: 10/30/24 16:07 Freq: Status: Active Protocol: Document 01/22/25 08:18 NM (Rec: 01/22/25 09:07 NM [id number]) Hip Goniometric Range of Motion Hip Right Flexion w/Knee Flexed 125 Extension 10 Abduction 25 Internal Rotation 35 External Rotation 35 Left Flexion w/Knee Flexed 130 Extension 10 Abduction 20 Internal Rotation 45 External Rotation 28 Comments IR tightness, same pain PT-OP-L Special Tests Start: 10/30/24 16:07 Freq: Status: Active Protocol: Document 10/31/24 11:35 NM (Rec: 10/31/24 12:27 NM [id number]) Special Tests Lumbar Spine Special Tests Gonzales/quadrant Test Results + Comments L local, Radic to bottom Hip Special Tests Scour Test Test Results - Stinchfield Resisted Hip Flexion Test Results - Labral tests Test Results - FADIR Test Results - Comments reproduced with cross body adduction and SLR passively SAMANTHA Test Results + Comments in glute, less on L side PT-OP-M Strength Start: 10/30/24 16:07 Freq: Status: Active Protocol: Document 01/22/25 08:18 NM (Rec: 01/22/25 09:07 NM [id number]) Hip Strength Hip Manual Muscle Testing Right Flexion (L2) 4+ Good+ Extension (S1) 4 Good Abduction 4+ Good+ Adduction 4+ Good+ External Rotation 4+ Good+ Internal Rotation 4+ Good+ Left Flexion (L2) 4+ Good+ Extension (S1) 4+ Good+ Abduction 4 Good Adduction 4+ Good+ External Rotation 4 Good Internal Rotation 4+ Good+ Comments pain with abduction resisted 12/11/23: still pain with hip abd but 4/5 01/22/25: 4/5 MMT and pain in buttock c/ abduction and ER PT-OP-Q Treatments Start: 10/30/24 16:07 Freq: Status: Active Protocol: Document 03/13/25 13:01 [facility] (Rec: 03/13/25 13:06 [facility] [id number]) Manual Therapy Treatment Other Other Manual Treatments worked today in prone over the body pillow on releasing the left gluteals, piriformis, and obturator internus. She was guarded and tight at the ischium on the right side so I did encourage sitting with sitting bones spread in R sidelying TrP Left QL by Haylee Kidd, PT Self-Care/Home Management Treatment Education Patient Education Body Mechanics Other Education we discussed body mechanics for sitting with her lap top to decrease her hip being tight PT-OP-T Assessment and Plan Start: 10/30/24 16:07 Freq: Status: Active Protocol: Document 03/13/25 13:06 [facility] (Rec: 03/13/25 13:09 [facility] [id number]) Physical Therapy Assessment Assessment Summary Assessment I worked today on releasing the left gluteals and both piriformis and obturator internus were very tight. Trp was performed over the LQL by Haylee Kidd Lidia tolerated this well. She was also shown the gusha for self release of the the gluteals. Physical Therapy Plan Frequency and Duration Frequency of Treatment 1x/Week Duration of treatment (weeks) 8 Plan of Care Start Date 02/21/25 Plan of Care End Date 04/18/25 Therapeutic Interventions Therapeutic Interventions Balance Training,Gait Training ,Home Exercise Program,Joint Mobilizations,Manual Therapy, Neuromuscular Re-education, Orthotic/Prosthetic Management ,Patient/Caregiver Education, Self-Care/Home Management, Sensory Integration,Soft Tissue Mobilization,Taping, Therapeutic Activities, Therapeutic Exercises Modalities Cold Pack/Ice Massage,Electric Stimulation,Hot Packs, Ultrasound Next Visit Focus/Plan Next Note Type Treatment Note Next Visit Plan assess how Lidia did after manual therapy work and continue working on releasing the tightness in the gluteals, add in MFR for the QL and side bending stretches
--- NOTE | 2025-03-21 18:59 | PT.OTN ---
Current Diagnoses Pain in left hip (03/21/25) Stiffness of left hip, not elsewhere classified (03/21/25) Stiffness of other specified joint, not elsewhere classified (03/21/25) Other lack of coordination (03/21/25) Weakness (03/21/25) Physical Therapy Treatment Note PT-OP-A Visit Information Start: 10/30/24 16:07 Freq: Status: Active Protocol: Document 03/21/25 09:12 [facility] (Rec: 03/21/25 09:12 [facility] [id number]) Out-Patient Physical Therapy Visit Information Visit Information Visit Type Treatment Note Visit Start Time 09:00 Visit Stop Time 09:45 PT-OP-B Current Condition Start: 10/30/24 16:07 Freq: Status: Active Protocol: Document 10/31/24 11:35 NM (Rec: 10/31/24 12:27 NM [id number]) Current Condition History of Current Condition Onset Date chronic Current Complaints pain, weakness History of Current Condition Pt reports on-off pain for years. She reports pain in L side, inside of the bone. She reports when running, if it hard to lift leg to run, has pain in glute. She has had pain at night, wakes her up. feels deep. She has a hx of sciatic pain on L side. She sees a chiro, 1x/month helps with pain in back (mid-low back). 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 Used to have pain with sleeping on side, but now any position. Has RA, has flare ups, dx 7 years ago (on medication to manage); saw rheum 1 month ago, has follow up in a few weeks. When she starts running, worse if already irritated; feels weak. No hx of injuries to hip. hx of several ankle injuries B, L >R- limited motion L Prior Treatments and Tests August 2024 L hip xray- Impression: minimal bilateral hip osteoarthritis, greater on the left side. Current Functional Impairments (Reported) Functional Limitations- Recreation/ wt lifting 3x/wk Hobbies running 3x/wk (5-6 mi, 4 mi) > 2x/wk PT-OP-C Subjective Start: 10/31/24 16:25 Freq: Status: Active Protocol: Document 03/21/25 18:50 [facility] (Rec: 03/21/25 18:59 [facility] [id number]) OP-PT Subjective Patient Comments Patient Comments Lidia notes she had good relief of pain after last visit but within a few days it did start creeping back up again. she did see her chiropractor and he also things her QL is tight PT-OP-D Balance Start: 10/30/24 16:07 Freq: Status: Active Protocol: Document 10/31/24 11:35 NM (Rec: 10/31/24 12:27 NM [id number]) Balance Tests Single Limb Standing Single Limb- Right 5 Single Limb- Left 5 - demos trendelenburg PT-OP-E Functional Tests Start: 10/30/24 16:07 Freq: Status: Active Protocol: Document 10/31/24 11:35 NM (Rec: 10/31/24 12:27 NM [id number]) Functional Tests Squat Test Score 10 Comments demos hip shift and rot; B knee crepitus Single Leg Squat Test Score L weakness and valgus Comment R WFL PT-OP-F Manual Assessment Start: 10/30/24 16:07 Freq: Status: Active Protocol: Document 10/31/24 11:35 NM (Rec: 10/31/24 12:27 NM [id number]) Manual Assessments Soft Tissue Assessment Soft Tissue Mobility Assessment Tightness of hip flexors, glutes Elongated hamstrings Joint Mobility Assessment Joint Mobility Assessment Decreased mobility with rotation R hip, L hip has more mobility Hypomobility of lumbar spine, thoracic spine and L SIJ, tenderness at L SIJ PT-OP-G Mobility & Gait Start: 10/30/24 16:07 Freq: Status: Active Protocol: Document 10/31/24 11:35 NM (Rec: 10/31/24 12:27 NM [id number]) OP Gait Assessment Gait Gait Assistance Required: Independent Distance (Feet) 150 Assistive Devices Assistive Device None Gait Deviations General Gait Pattern Within Normal Limits PT-OP-J Posture/Palpation/Skin Start: 10/30/24 16:07 Freq: Status: Active Protocol: Document 10/31/24 11:35 NM (Rec: 10/31/24 12:27 NM [id number]) Posture Evaluation Position Standing Head/C-Spine Posture Forward Head Shoulder Posture (L) Rounded,(R) Rounded Scapula Posture (L) Neutral,(R) Neutral Pelvis Posture Anteriorly Tilted,(R) Rotated Anterior Knee Posture (L) Genu Valgus,(R) Genu Valgus Ankle/Foot Posture (L) Pronated,(R) Pronated Comments Posture Comments Demos hypermobility in B elbows and knees Palpation Assessment Location L hip Palpation Details No tenderness at groin Tightness at hip flexors Tenderness at glute, piriformis. Trigger points noted at glutes/piriformis harrison behind greater trochanter PT-OP-K Range of Motion Start: 10/30/24 16:07 Freq: Status: Active Protocol: Document 01/22/25 08:18 NM (Rec: 01/22/25 09:07 NM [id number]) Hip Goniometric Range of Motion Hip Right Flexion w/Knee Flexed 125 Extension 10 Abduction 25 Internal Rotation 35 External Rotation 35 Left Flexion w/Knee Flexed 130 Extension 10 Abduction 20 Internal Rotation 45 External Rotation 28 Comments IR tightness, same pain PT-OP-L Special Tests Start: 10/30/24 16:07 Freq: Status: Active Protocol: Document 10/31/24 11:35 NM (Rec: 10/31/24 12:27 NM [id number]) Special Tests Lumbar Spine Special Tests Gonzales/quadrant Test Results + Comments L local, Radic to bottom Hip Special Tests Scour Test Test Results - Stinchfield Resisted Hip Flexion Test Results - Labral tests Test Results - FADIR Test Results - Comments reproduced with cross body adduction and SLR passively SAMANTHA Test Results + Comments in glute, less on L side PT-OP-M Strength Start: 10/30/24 16:07 Freq: Status: Active Protocol: Document 01/22/25 08:18 NM (Rec: 01/22/25 09:07 NM [id number]) Hip Strength Hip Manual Muscle Testing Right Flexion (L2) 4+ Good+ Extension (S1) 4 Good Abduction 4+ Good+ Adduction 4+ Good+ External Rotation 4+ Good+ Internal Rotation 4+ Good+ Left Flexion (L2) 4+ Good+ Extension (S1) 4+ Good+ Abduction 4 Good Adduction 4+ Good+ External Rotation 4 Good Internal Rotation 4+ Good+ Comments pain with abduction resisted 12/11/23: still pain with hip abd but 4/5 01/22/25: 4/5 MMT and pain in buttock c/ abduction and ER PT-OP-Q Treatments Start: 10/30/24 16:07 Freq: Status: Active Protocol: Document 03/21/25 18:50 [facility] (Rec: 03/21/25 18:59 [facility] [place] [id number]) Therapeutic Exercises Standing Exercises standing sidebending stretch Reps/Minutes work on both side, left side is tighter Other Exercises keiry pose Other Exercise Name work on sidebending over to the right to open up the left side of her low b Reps/Minutes 30 sec- 1 min hold Manual Therapy Treatment Soft Tissue Mobilization left paraspinals and QL Mobilization Type Instrument Assisted,Myofascial Release Intensity/Depth Moderate Body Position Prone Comments tight left side of paraspinals and quadrutus lumborum L hip Mobilization Type Instrument Assisted,Myofascial Release Body Position Prone Comments gusha used to mobilize the fascia over the left hip, ITB and gluteals PT-OP-T Assessment and Plan Start: 10/30/24 16:07 Freq: Status: Active Protocol: Document 03/21/25 18:50 [facility] (Rec: 03/21/25 18:59 [facility] [place] [id number]) Physical Therapy Assessment Assessment Summary Assessment Lidia tolerated well, she was educated on using the gusha on her own for self release of the fascia and we worked on stretches to open up the lateral side of the QL including standing sidebends and keiry pose. She would like to see how she does and will make one more visit for a check in if needed. Physical Therapy Plan Frequency and Duration Frequency of Treatment 1x/Week Duration of treatment (weeks) 8 Plan of Care Start Date 02/21/25 Plan of Care End Date 04/18/25 Therapeutic Interventions Therapeutic Interventions Balance Training,Gait Training ,Home Exercise Program,Joint Mobilizations,Manual Therapy, Neuromuscular Re-education, Orthotic/Prosthetic Management ,Patient/Caregiver Education, Self-Care/Home Management, Sensory Integration,Soft Tissue Mobilization,Taping, Therapeutic Activities, Therapeutic Exercises Modalities Cold Pack/Ice Massage,Electric Stimulation,Hot Packs, Ultrasound Next Visit Focus/Plan Next Note Type Treatment Note Next Visit Plan assess how Lidia did after manual therapy work and continue working on releasing the tightness in the gluteals, review self release techniques and stretches
--- NOTE | 2025-04-17 12:07 | PT.OTN ---
Current Diagnoses Pain in left hip (04/17/25) Stiffness of left hip, not elsewhere classified (04/17/25) Stiffness of other specified joint, not elsewhere classified (04/17/25) Other lack of coordination (04/17/25) Weakness (04/17/25) Physical Therapy Treatment Note PT-OP-A Visit Information Start: 10/30/24 16:07 Freq: Status: Active Protocol: Document 04/17/25 10:43 [facility] (Rec: 04/17/25 11:37 [facility] [id number]) Out-Patient Physical Therapy Visit Information Visit Information Visit Type Treatment Note Visit Start Time 10:45 Visit Stop Time 11:30 Visit Number 15 03/07 Evaluation Information Evaluation Date 10/31/24 PT-OP-B Current Condition Start: 10/30/24 16:07 Freq: Status: Active Protocol: Document 10/31/24 11:35 NM (Rec: 10/31/24 12:27 NM [id number]) Current Condition History of Current Condition Onset Date chronic Current Complaints pain, weakness History of Current Condition Pt reports on-off pain for years. She reports pain in L side, inside of the bone. She reports when running, if it hard to lift leg to run, has pain in glute. She has had pain at night, wakes her up. feels deep. She has a hx of sciatic pain on L side. She sees a chiro, 1x/month helps with pain in back (mid-low back). 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 Used to have pain with sleeping on side, but now any position. Has RA, has flare ups, dx 7 years ago (on medication to manage); saw rheum 1 month ago, has follow up in a few weeks. When she starts running, worse if already irritated; feels weak. No hx of injuries to hip. hx of several ankle injuries B, L >R- limited motion L Prior Treatments and Tests August 2024 L hip xray- Impression: minimal bilateral hip osteoarthritis, greater on the left side. Current Functional Impairments (Reported) Functional Limitations- Recreation/ wt lifting 3x/wk Hobbies running 3x/wk (5-6 mi, 4 mi) > 2x/wk PT-OP-C Subjective Start: 10/31/24 16:25 Freq: Status: Active Protocol: Document 04/17/25 10:43 [facility] (Rec: 04/17/25 11:37 [facility] [id number]) OP-PT Subjective Patient Comments Patient Comments Lidia notes she has been traveling and could feel her hip was more painful. Am is the worse and then as she starts moving it loosens up. IF feels like it stems from inside the lateral hip and then radiates outward. Lidia notes even with a break from running the hip pain is still present PT-OP-D Balance Start: 10/30/24 16:07 Freq: Status: Active Protocol: Document 10/31/24 11:35 NM (Rec: 10/31/24 12:27 NM [id number]) Balance Tests Single Limb Standing Single Limb- Right 5 Single Limb- Left 5 - demos trendelenburg PT-OP-E Functional Tests Start: 10/30/24 16:07 Freq: Status: Active Protocol: Document 10/31/24 11:35 NM (Rec: 10/31/24 12:27 NM [id number]) Functional Tests Squat Test Score 10 Comments demos hip shift and rot; B knee crepitus Single Leg Squat Test Score L weakness and valgus Comment R WFL PT-OP-F Manual Assessment Start: 10/30/24 16:07 Freq: Status: Active Protocol: Document 10/31/24 11:35 NM (Rec: 10/31/24 12:27 NM [id number]) Manual Assessments Soft Tissue Assessment Soft Tissue Mobility Assessment Tightness of hip flexors, glutes Elongated hamstrings Joint Mobility Assessment Joint Mobility Assessment Decreased mobility with rotation R hip, L hip has more mobility Hypomobility of lumbar spine, thoracic spine and L SIJ, tenderness at L SIJ PT-OP-G Mobility & Gait Start: 10/30/24 16:07 Freq: Status: Active Protocol: Document 10/31/24 11:35 NM (Rec: 10/31/24 12:27 NM [id number]) OP Gait Assessment Gait Gait Assistance Required: Independent Distance (Feet) 150 Assistive Devices Assistive Device None Gait Deviations General Gait Pattern Within Normal Limits PT-OP-J Posture/Palpation/Skin Start: 10/30/24 16:07 Freq: Status: Active Protocol: Document 10/31/24 11:35 NM (Rec: 10/31/24 12:27 NM [id number]) Posture Evaluation Position Standing Head/C-Spine Posture Forward Head Shoulder Posture (L) Rounded,(R) Rounded Scapula Posture (L) Neutral,(R) Neutral Pelvis Posture Anteriorly Tilted,(R) Rotated Anterior Knee Posture (L) Genu Valgus,(R) Genu Valgus Ankle/Foot Posture (L) Pronated,(R) Pronated Comments Posture Comments Demos hypermobility in B elbows and knees Palpation Assessment Location L hip Palpation Details No tenderness at groin Tightness at hip flexors Tenderness at glute, piriformis. Trigger points noted at glutes/piriformis harrison behind greater trochanter PT-OP-K Range of Motion Start: 10/30/24 16:07 Freq: Status: Active Protocol: Document 01/22/25 08:18 NM (Rec: 01/22/25 09:07 NM [id number]) Hip Goniometric Range of Motion Hip Right Flexion w/Knee Flexed 125 Extension 10 Abduction 25 Internal Rotation 35 External Rotation 35 Left Flexion w/Knee Flexed 130 Extension 10 Abduction 20 Internal Rotation 45 External Rotation 28 Comments IR tightness, same pain PT-OP-L Special Tests Start: 10/30/24 16:07 Freq: Status: Active Protocol: Document 10/31/24 11:35 NM (Rec: 10/31/24 12:27 NM [id number]) Special Tests Lumbar Spine Special Tests Gonzales/quadrant Test Results + Comments L local, Radic to bottom Hip Special Tests Scour Test Test Results - Stinchfield Resisted Hip Flexion Test Results - Labral tests Test Results - FADIR Test Results - Comments reproduced with cross body adduction and SLR passively SAMANTHA Test Results + Comments in glute, less on L side PT-OP-M Strength Start: 10/30/24 16:07 Freq: Status: Active Protocol: Document 01/22/25 08:18 NM (Rec: 01/22/25 09:07 NM [id number]) Hip Strength Hip Manual Muscle Testing Right Flexion (L2) 4+ Good+ Extension (S1) 4 Good Abduction 4+ Good+ Adduction 4+ Good+ External Rotation 4+ Good+ Internal Rotation 4+ Good+ Left Flexion (L2) 4+ Good+ Extension (S1) 4+ Good+ Abduction 4 Good Adduction 4+ Good+ External Rotation 4 Good Internal Rotation 4+ Good+ Comments pain with abduction resisted 12/11/23: still pain with hip abd but 4/5 01/22/25: 4/5 MMT and pain in buttock c/ abduction and ER PT-OP-Q Treatments Start: 10/30/24 16:07 Freq: Status: Active Protocol: Document 04/17/25 11:54 [facility] (Rec: 04/17/25 11:57 [facility] [id number]) Therapeutic Exercises Supine Exercises ITB stretch Supine Exercise Name manual ITB stretch Side left Reps/Minutes worked on MFR with ITB stretch , pin and stretch Manual Therapy Treatment Soft Tissue Mobilization left paraspinals and QL Mobilization Type Instrument Assisted,Myofascial Release Intensity/Depth Moderate Body Position Prone Comments tight left side of paraspinals and quadrutus lumborum L hip Mobilization Type Myofascial Release Body Position Prone Comments MFR to mobilize the fascia over the left hip, ITB and gluteals worked on sidelying as well as supine Joint Mobilizations L hip Joint Left hip Body Position Hooklying Comments posterior hip capsule mobilizations with the belt MWM hip IR and ER all in supine with manual therapy belt and lateral hip distraction PT-OP-T Assessment and Plan Start: 10/30/24 16:07 Freq: Status: Active Protocol: Document 04/17/25 11:54 [facility] (Rec: 04/17/25 11:57 [facility] [id number]) Physical Therapy Assessment Goals Four Impairment pain with sitting; LEFS 72/80 Short Term Goal (STG) Pt will be educated on sitting ergonomics and postural/ activity modifications for pain management STG Duration 02/22/25 (4 weeks) Professor Sculpture Goal (LTG) Pt will report that she is able to sit in office chair at least 1 hour without increased pain in her L glute/ posterior 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 Lidia still has increased pain after sitting and or after sleeping LTG Duration 03/08/25 (6 weeks) Three Impairment sleeping impaired d/t pain Short Term Goal (STG) Pt will report that she is waking <50% of the time due to hip pain 12/11/24: states 40% improved since evaluation, states waking up every night but states no longer having to take medication, readjusts with more relief STG Duration 8 weeks Professor Sculpture Goal (LTG) Pt will report that she is not waking due to hip pain 01/01/25: pt reports that she does not wake due to pain at night pt is still experiencing most pain and discomfort at night LTG Duration 12 weeks MET Two Impairment pain with running Short Term Goal (STG) Pt will improve global hip and knee strength to at least 4+/ 5 in order increase strength and stability during running 12/11/24: L hip abd strength still most limited and painful 4/5, rest progressing 4+/5 01/22/25: L hip abd and ER strength 4/5, pain STG Duration 8 weeks PROGRESSING 12/11/24 Jail Goal (LTG) Pt will report that she has hip pain <3/10 with running 01/22/25: pt reports 3-4/10 pain with running LTG Duration 12 weeks PARTIALLY MET; updated on 01/22/25 for 6 weeks 03/08/25 One Impairment not performing HEP Professor Sculpture Goal (LTG) Pt will be IND with HEP at least 3x/wk in order to maximize progression with PT and to transition to maintenance program following discharge 12/11/24: compliant with HEP LTG Duration 12 weeks MET Assessment Summary Assessment Lidia has been seen in PT since October 2024. She is very complaint with her HEP including strengthening and stabilization for the lateral hip as well as a home stretching and self hip mobilization program. She gets temporary relief with manual therapy techniques to release the ITB and decompress the hip however despite efforts she continues to c/o hip pain. Lidia reports her hip bothers her at night and it is difficult to find a comfortable position to sleep. Her pain is worse first thing in the am as she feels very stiff. She describes her pain as lateral and deep at the hip joint and then spreading out as pain increases. At this point Lidia is at the end of her PT sessions. She may benefit from a MRI to rule out possible pathologies. She will follow up with her primary care physician to discuss this and further options for her. Physical Therapy Plan Discharge Physical Therapy Discharge Reasons Plateau in Progress Discharge Comments Referral back to her primary care doctor for further work up regarding ongoing hip pain.
== END 2025-06-03 09:30 | disposition home or self-care (01) ==
LOC: PHYS 10:45
PROVIDERS: Family Provider Family Medicine; PCP Family Medicine; Referring Provider Family Medicine; Visit Provider Family Medicine
DX: M25.552 Pain in left hip (principal); M25.652 Stiffness of left hip, not elsewhere classified; M25.69 Stiffness of other specified joint, not elsewhere classified; R53.1 Weakness; R27.8 Other lack of coordination
CPT/HCPCS: 97110; 97140; 97161; 97535

== ENCOUNTER → 2025-10-08 07:34 | Outpatient (CLI) | payer BC, SELFPAY ==
[2025-10-08 08:02] LABS: Add Manual Diff / Slide Review NO; Hematocrit 37.8 % (36-46); Hemoglobin 12.9 g/dL (12.0-16.0); Lymphocytes Absolute Auto 1100 /uL (1100-4500); Mean Corpuscular HGB Conc 34.1 % (30-36); Mean Corpuscular Hemoglobin 31.8 PG (26-34); Mean Corpuscular Volume 93.3 fL (80-100); Platelet Count 199 X10^3/uL (150-400)
[2025-10-08 08:27] LABS: Microalbumi Creatinin Ratio Ur 5.0 ug/mg CR (<30)
[2025-10-08 09:30] LABS: Alanine Aminotransferase 23 IU/L (<35); Albumin 4.1 g/dL (3.5-5.0); Albumin Globulin Ratio 1.6 (1.0-2.8); Alkaline Phosphatase 82 U/L (38-126); Blood Urea Nitrogen 18 mg/dL (7-17); Calcium 9.2 mg/dL (8.4-10.2); Carbon Dioxide 29 mmol/L (22-32); Chloride 102 mmol/L (98-107); Cholesterol 220 mg/dL (140-199); Estimated Glomerular Filt Rate 59 mL/min (>60); Globulin 2.5 g/dL (1.7-4.1); Glucose 88 mg/dL (70-99); HEMOLYSIS < 15 (0-50); Potassium 4.1 mmol/L (3.4-5.1); Sodium 137 mmol/L (137-145); Total Protein 6.6 g/dL (6.3-8.2); Triglycerides 64 mg/dL (35-150)
[2025-10-08 09:42] LABS: HDL Cholesterol 129 mg/dL (40-60)
[2025-10-08 09:56] LABS: TSH w/ Reflex to FT4 1.26 uIU/mL (0.47-4.68)
== END ==
PROVIDERS: Family Provider Family Medicine; PCP Family Medicine; Referring Provider Family Medicine; Visit Provider Family Medicine
DX: Z00.00 Encounter for general adult medical examination without abnormal findings (principal); M06.9 Rheumatoid arthritis, unspecified; E03.8 Other specified hypothyroidism; E06.3 Autoimmune thyroiditis
CPT/HCPCS: 36415; 80053; 80061; 82043; 82570; 84443; 85025

== ENCOUNTER → 2025-10-09 07:12 | Outpatient (CLI) | payer BC, SELFPAY | PROVIDERS: Family Provider Family Medicine; PCP Family Medicine; Referring Provider Family Medicine; Visit Provider Family Medicine | DX: Z12.11 Encounter for screening for malignant neoplasm of colon (principal) | CPT/HCPCS: 82274 ==